=== PATIENT | female | born 1955 | race Caucasian/White ===

== ENCOUNTER → 2016-09-12 | Outpatient (CLI) | payer OTHER ==
[2016-09-12 12:41] LABS: MEAN CORPUSCULAR HEMOGLOBIN 29.7 pg (27.0-33.0); MEAN CORPUSCULAR VOLUME 87.3 fl (80.0-96.0); RED CELL DISTRIBUTION WIDTH 12.6 % (11.5-14.5); WHITE BLOOD COUNT 6.8 K/mm3 (4.0-10.0)
[2016-09-12 12:57] LABS: ALBUMIN 3.6 GM/DL (3.2-5.2); BILIRUBIN,DIRECT 0.1 MG/DL (0.0-0.2); BILIRUBIN,TOTAL 0.5 MG/DL (0.2-1.0); TOTAL PROTEIN 7.2 GM/DL (6.4-8.2)
== END ==
LOC: M WUC 09:59
PROVIDERS: ATTEND Internal Medicine
DX: Z51.81 Encounter for therapeutic drug level monitoring (principal); Z79.899 Other long term (current) drug therapy

== ENCOUNTER → 2016-09-25 | Outpatient (CLI) | payer OTHER ==
[2016-09-25 12:44] LABS: ALBUMIN 3.8 GM/DL (3.2-5.2); ALBUMIN/GLOBULIN RATIO 1.15 (1.00-1.93); BILIRUBIN,DIRECT 0.1 MG/DL (0.0-0.2); BILIRUBIN,TOTAL 0.5 MG/DL (0.2-1.0); TOTAL PROTEIN 7.1 GM/DL (6.4-8.2)
== END ==
LOC: M WUC 10:47
PROVIDERS: ATTEND Internal Medicine
DX: R79.89 Other specified abnormal findings of blood chemistry (principal)

== ENCOUNTER → 2017-04-16 | Outpatient (CLI) | payer OTHER ==
--- NOTE | 2017-04-16 10:21 | REPMRS ---
Patient History The patient states she has not had a clinical breast exam in over a year. Patient is postmenopausal and is nulliparous. No known family history of cancer. Took hormonal contraceptives for 10 years. Digital Woman Screen Mammo: April 16, 2017 - Exam #: [id number] Bilateral CC and MLO view(s) were taken. Technologist: Meli Harper, Technologist Prior study comparison: March 15, 2015, digital woman screen mammo performed at [facility]. March 10, 2013, bilateral bilat screen digital mammo, performed at [facility] ([facility]). June 24, 2011, bilateral bilat screen digital mammo, performed at [facility] ([facility]). FINDINGS: The breast tissue is heterogeneously dense. This may lower the sensitivity of mammography. There is a moderate amount of heterogeneously dense fibroglandular tissue which is fairly symmetric. There is no interval development of dominant mass, architectural distortion, or clustered microcalcification typical of malignancy. There has been no change in the appearance of the mammogram from the prior studies. ASSESSMENT: BI-RADS/ACR category 1 mammogram. Negative. Recommendation Routine screening mammogram of both breasts in 1 year (for women over age 40). This mammogram was interpreted with the aid of an FDA-approved computer-aided dectection system. Electronically Signed By: Goran Johnson MD 04/16/17 [id number]
== END ==
LOC: M WHC 08:26
PROVIDERS: ATTEND Internal Medicine
DX: Z12.31 Encounter for screening mammogram for malignant neoplasm of breast (principal)

== ENCOUNTER → 2017-05-04 | Outpatient (REF) | payer OTHER ==
[2017-05-04 13:09] LABS: ALBUMIN 3.8 GM/DL (3.2-5.2); ALBUMIN/GLOBULIN RATIO 1.15 (1.00-1.93); ALKALINE PHOSPHATASE 63 U/L (45-117); ALT/SGPT 41 U/L (12-78); ANION GAP 10 MEQ/L (8-16); AST/SGOT 22 U/L (15-37); BILIRUBIN,TOTAL 0.5 MG/DL (0.2-1.0); BLOOD UREA NITROGEN 13 MG/DL (7-18); CALCIUM LEVEL 8.6 MG/DL (8.8-10.2); CARBON DIOXIDE LEVEL 25 MEQ/L (21-32); CHLORIDE LEVEL 110 MEQ/L (98-107); CHOLESTEROL LEVEL 301 MG/DL (<200); CREATININE FOR GFR 0.86 MG/DL (0.55-1.02); GLOMERULAR FILTRATION RATE > 60.0 (>45); GLUCOSE, FASTING 82 MG/DL (80-110); POTASSIUM SERUM 4.2 MEQ/L (3.5-5.1); SODIUM LEVEL 145 MEQ/L (136-145); TOTAL PROTEIN 7.1 GM/DL (6.4-8.2); TRIGLYCERIDES LEVEL 277 MG/DL (<150)
== END ==
LOC: M SFHCPLAZ 08:15
PROVIDERS: ATTEND Internal Medicine
DX: E78.00 Pure hypercholesterolemia, unspecified (principal)

== ENCOUNTER → 2017-06-02 | Outpatient (REF) | payer OTHER | LOC: M SFHCWAGY 09:20 | PROVIDERS: ATTEND Nurse Practitioner Women's Health | DX: Z12.4 Encounter for screening for malignant neoplasm of cervix (principal) ==

== ENCOUNTER → 2017-12-21 | Outpatient (REF) | payer OTHER ==
[2017-12-21 13:21] LABS: ALBUMIN 3.9 GM/DL (3.2-5.2); ALBUMIN/GLOBULIN RATIO 1.22 (1.00-1.93); ALKALINE PHOSPHATASE 72 U/L (45-117); ALT/SGPT 42 U/L (12-78); ANION GAP 9 MEQ/L (8-16); AST/SGOT 24 U/L (7-37); BILIRUBIN,TOTAL 0.8 MG/DL (0.2-1.0); BLOOD UREA NITROGEN 18 MG/DL (7-18); CARBON DIOXIDE LEVEL 25 MEQ/L (21-32); CHLORIDE LEVEL 109 MEQ/L (98-107); CHOLESTEROL LEVEL 207 MG/DL (<200); CPK CREATINE PHOSPHOKINASE 179 U/L (26-192); CREATININE FOR GFR 0.97 MG/DL (0.55-1.30); GLOMERULAR FILTRATION RATE > 60.0 (>45); GLUCOSE, FASTING 95 MG/DL (70-100); HDL CHOLESTEROL 60 MG/DL (>40); LDL CHOLESTEROL 102.6 MG/DL (<100); NON-HDL-C 147 MG/DL; POTASSIUM SERUM 4.3 MEQ/L (3.5-5.1); SODIUM LEVEL 143 MEQ/L (136-145); TOTAL PROTEIN 7.1 GM/DL (6.4-8.2); TRIGLYCERIDES LEVEL 222 MG/DL (<150)
== END ==
LOC: M SFHCPLAZ 08:41
DX: E78.00 Pure hypercholesterolemia, unspecified (principal)
CPT/HCPCS: 82550

== ENCOUNTER 2018-03-03 09:24 | Day surgery (SDC) | payer OTHER ==
[2018-03-03] MEDS: NS 1,000 ML IV (10:00)
[2018-03-03] MEDS ORDERED: LIDOCAINE 2% INJ 100 MG/5 ML SDV (FOR ANES.) As Ordered (10:01)
[2018-03-03] MEDS ORDERED: PROPOFOL 200 MG/20 ML VIAL As Ordered ×2 (10:01)
[2018-03-03] MEDS ORDERED: fentaNYL 100 MCG/2 ML INJECTION (J3010) As Ordered (10:02)
== END 2018-03-03 11:27 | disposition home or self-care (01) ==
LOC: M OPP 09:24
DX: Z12.11 Encounter for screening for malignant neoplasm of colon (principal); K64.0 First degree hemorrhoids; K22.8 Other specified diseases of esophagus; K44.9 Diaphragmatic hernia without obstruction or gangrene; R12 Heartburn; K21.9 Gastro-esophageal reflux disease without esophagitis; E78.00 Pure hypercholesterolemia, unspecified; R06.83 Snoring; L40.9 Psoriasis, unspecified; Z79.899 Other long term (current) drug therapy
CPT/HCPCS: 45380

== ENCOUNTER → 2018-05-13 | Outpatient (REF) | payer OTHER | LOC: M SFHCPLAZ 13:20 | DX: R35.0 Frequency of micturition (principal) ==

== ENCOUNTER 2018-08-23 21:26 | Emergency (ER) | payer OTHER ==
[~2018-08-23] VITALS: Ht 175.3 cm; Wt 90.9 kg
[~2018-08-23 21:26] MED LIST changes: -IBUP200C25 PO; -MUCI600T31 PO; -ROSU5TAB4 PO; -TESS100C PO
[2018-08-23] MEDS ORDERED: MUCI600T31 PO (21:30)
[2018-08-23] MEDS ORDERED: IBUP200C25 PO (21:30)
[2018-08-23] MEDS ORDERED: ROSU5TAB4 PO (21:30)
[2018-08-23] MEDS ORDERED: ALBUTEROL SULFATE 2.5 MG/0.5 ML INH NEB SOLN INH ONE (23:00)
[2018-08-23 23:40] LABS: INFLUENZA A AMPLIFICATION NEGATIVE (NEGATIVE); INFLUENZA B AMPLIFICATION NEGATIVE (NEGATIVE)
[2018-08-24] MEDS ORDERED: TESS100C PO (00:02)
[2018-08-24 00:29] VITALS: BP 151/77
[2018-08-24] MEDS ORDERED: BENZONATATE 100 MG CAP PO ONE (00:30)
--- NOTE | 2018-08-24 02:20 | REP ---
Clinical: Acute cough . Comparison: 06/08/2008 . Technique: PA and lateral. Findings: The mediastinum and cardiac silhouette are normal. 15 mm rounded lesion in the left mid lung zone at the midclavicular line cannot be excluded and requires further investigation. No consolidation, effusion, or pneumothorax. The skeletal structures intact. Impression: 1. 15 mm rounded lesion in the left mid lung zone requires further investigation. Consider chest CT with contrast. Electronically Signed by Antonio Molina MD 08/24/2018 02:12 A
--- NOTE | 2018-08-24 13:35 | ED PDOC ---
Post-Departure Follow-Up dr sims faxed formal report of cxr for fu Katrina Brown MD Aug 24, 2018 13:35
== END 2018-08-24 00:56 | disposition home or self-care (01) ==
LOC: M ED 21:26
DX: J06.9 Acute upper respiratory infection, unspecified (principal); K21.9 Gastro-esophageal reflux disease without esophagitis; E78.5 Hyperlipidemia, unspecified

== ENCOUNTER → 2018-08-23 | Outpatient (REF) | payer OTHER ==
[~2018-08-23] MED LIST: IBUP200C25 PO; MUCI600T31 PO; NEXI40CA PO; PRAV40TA2 PO; ROSU5TAB4 PO; TESS100C PO
== END ==
LOC: M LAB REF 17:20
PROVIDERS: ATTEND Physician Assistant
DX: J02.9 Acute pharyngitis, unspecified (principal)

== ENCOUNTER → 2018-09-13 | Outpatient (CLI) | payer OTHER ==
[~2018-09-13] MED LIST changes: +IBUP200C25 PO; +ISOVUE-370 76% 100ML VIAL (Q9967) As Ordered ONE; +MUCI600T31 PO; +ROSU5TAB4 PO; +TESS100C PO
--- NOTE | 2018-09-13 10:10 | REP ---
Clinical: Pulmonary nodule. Technique: Axial contrast enhanced images from the thoracic inlet to the upper abdomen with coronal and sagittal re-formations. Correlation: Chest x-ray dated 08/23/2018. Findings: 1.6 cm enhancing round mass lesion in the perihilar left upper lobe (image 34) corresponds to the abnormal finding on recent chest x-ray and concerning for malignancy. Remainder of lung alba are relatively well aerated and clear. A small 3 mm noncalcified density in the periphery of the left lower lobe (image 65) is nonspecific in appearance and may represent small scar. No consolidation, effusion or pneumothorax. Tracheobronchial tree is patent. No significant adenopathy noted. The mediastinum demonstrates age appropriate thoracic aorta, pulmonary vasculature and heart/pericardium. No pericardial effusion. Surrounding musculoskeletal structures without focal osseous abnormality. Limited upper abdomen includes 4.7 cm and the 1.0 cm adjacent cysts in the left hepatic lobe. Normal bilateral adrenal glands identified. Impression: 1. 1.6 cm enhancing mass lesion in the left upper lobe. Follow-up and consultation is recommended along with PET-CT and/or tissue sampling. Electronically Signed by Antonio Molina MD 09/13/2018 10:02 A
== END ==
LOC: M RAD 09:01
PROVIDERS: ATTEND Nurse Practitioner Adult Health
DX: R91.8 Other nonspecific abnormal finding of lung field (principal)
CPT/HCPCS: 71260; Q9967

== ENCOUNTER → 2018-10-05 | Outpatient (CLI) | payer OTHER ==
[~2018-10-05] MED LIST changes: -ISOVUE-370 76% 100ML VIAL (Q9967) As Ordered ONE
--- NOTE | 2018-10-06 20:10 | REP ---
Whole body PET CT scan: The study is performed for evaluation of a single pulmonary nodule. On a recent chest CT dated 08/23/2018 a 1.6 cm single pulmonary nodule was identified in the left parahilar zone. Whole-body scanning is performed from skull base to the upper thighs. Neck and supraclavicular areas: There are no hypermetabolic foci. Chest: The left perihilar lung nodule is again identified on the CT accompanying the PET scan. The nodule is non hypermetabolic with a maximal standard uptake value of 1.9. There are no other foci in the chest. Abdomen, pelvis and upper thighs: There are no hypermetabolic foci. Specifically there are no hepatic or adrenal foci. Impression: The known left perihilar single pulmonary nodule is non hypermetabolic. There are no hypermetabolic foci otherwise. The study is performed with 8.94 mCi of F 18 FDG. Electronically Signed by Royce Rodriguez MD 10/06/2018 08:00 P
== END ==
LOC: M PLARAD 07:20
PROVIDERS: ATTEND Internal Medicine Pulmonary Disease
DX: R91.1 Solitary pulmonary nodule (principal)
CPT/HCPCS: 78815; A9552

== ENCOUNTER → 2018-12-22 | Outpatient (REF) | payer OTHER ==
[2018-12-22 13:23] LABS: ALT/SGPT 45 U/L (12-78); BILIRUBIN,TOTAL 0.9 MG/DL (0.2-1.0); BLOOD UREA NITROGEN 12 MG/DL (7-18); C REACTIVE PROTEIN QUANTITATIV 0.31 MG/DL (0.00-0.30); CALCIUM LEVEL 9.1 MG/DL (8.8-10.2); CARBON DIOXIDE LEVEL 28 MEQ/L (21-32); CHLORIDE LEVEL 106 MEQ/L (98-107); CHOLESTEROL LEVEL 229 MG/DL (<200); CHOLESTEROL RISK RATIO 3.634 (<5); CREATININE FOR GFR 0.83 MG/DL (0.55-1.30); GLOMERULAR FILTRATION RATE > 60.0 (>45); GLUCOSE, FASTING 106 MG/DL (70-100); HDL CHOLESTEROL 63 MG/DL (>40); LDL CHOLESTEROL 120 MG/DL (<100); MAGNESIUM LEVEL 2.1 MG/DL (1.8-2.4); NON-HDL-C 166 MG/DL; SODIUM LEVEL 140 MEQ/L (136-145); TOTAL PROTEIN 7.2 GM/DL (6.4-8.2); TRIGLYCERIDES LEVEL 230 MG/DL (<150)
== END ==
LOC: M SFHCPLAZ 08:54
PROVIDERS: ATTEND Internal Medicine
DX: E78.00 Pure hypercholesterolemia, unspecified (principal); K21.9 Gastro-esophageal reflux disease without esophagitis

== ENCOUNTER 2019-05-11 09:02 | Inpatient (IN) | payer OTHER ==
[~2019-05-11] VITALS: Ht 172.7 cm; Wt 86.4 kg
[~2019-05-11 09:02] MED LIST changes: -ROSU5TAB4 PO; +ROSU5TAB5 PO
[2019-05-11 11:00] VITALS: BP 118/80
[2019-05-11] MEDS ORDERED: ACETAMINOPHEN TAB 650MG DOSE (2X325MG) PO PRN (11:30)
[2019-05-11] MEDS ORDERED: BISACODYL 10 MG SUPP PR PRN (11:30)
[2019-05-11] MEDS ORDERED: traZODone 25MG PER 1/2 TABLET PO PRN (11:45)
[2019-05-11] MEDS ORDERED: QUEtiapine FUMARATE 12.5 MG HALF-TAB PO PRN (11:45)
[2019-05-11] MEDS ORDERED: PANT-23 PO (12:31)
[2019-05-11] MEDS ORDERED: MIRA3350 PO (12:31)
[2019-05-11] MEDS ORDERED: AMLO10TA5 PO (12:31)
[2019-05-11] MEDS ORDERED: MOM30SS PO (12:31)
[2019-05-11] MEDS ORDERED: HEPA500011 SC (12:31)
[2019-05-11] MEDS ORDERED: CRES10TA PO (12:31)
[2019-05-11] MEDS ORDERED: MELA3TAB41 PO (12:31)
[2019-05-11] MEDS ORDERED: ACET-907 PO (12:31)
[2019-05-11] MEDS ORDERED: OYST500T91 PO (12:31)
[2019-05-11] MEDS ORDERED: POTA20TA6 PO (12:31)
[2019-05-11] MEDS ORDERED: QUET1TAB7 PO (12:31)
[2019-05-11] MEDS ORDERED: SENN8.6T28 PO (12:31)
[2019-05-11] MEDS ORDERED: BISA10SU4 PR (12:31)
[2019-05-11] MEDS: MECLIZINE 12.5 MG TAB PO SCH ×3 (13:00→20:39)
[2019-05-11 14:00] VITALS: BP 108/64
[2019-05-11] MEDS: GABAPENTIN 100 MG CAP PO SCH ×2 (16:38→20:39)
[2019-05-11] MEDS: ACETAMINOPHEN 500 MG TAB PO SCH ×2 (16:40→20:40)
[2019-05-11 20:00] VITALS: BP 112/72
[2019-05-11] MEDS: ROSUVASTATIN 10 MG TAB (CRESTOR) PO SCH (20:39)
[2019-05-11] MEDS: traZODone 25MG PER 1/2 TABLET PO SCH (20:39)
[2019-05-11] MEDS: HEPARIN SOD (PORCINE) 5000 UNITS/ML VIAL SC SCH (20:40)
[2019-05-11] MEDS: DOCUSATE SODIUM 100 MG CAP PO SCH ×2 (20:40→21:00)
[2019-05-11] MEDS: SENNA 8.6 MG TAB (SENOKOT) PO SCH (20:46)
[2019-05-12 04:00] VITALS: BP 126/67
[2019-05-12 07:40] LABS: BASO # 0.1 10^3/uL (0.0-0.2); BASO % 0.8 % (0.0-1.0); EOS # 0.3 10^3/uL (0.0-0.5); EOS % 4.7 % (0.0-3.0); LYMPH # 2.3 10^3/uL (1.5-5.0); LYMPH % 34.1 % (24.0-44.0); MEAN CORPUSCULAR HEMOGLOBIN 30.2 pg (27.0-33.0); MEAN CORPUSCULAR HGB CONC 34.3 g/dl (32.0-36.5); MEAN CORPUSCULAR VOLUME 88.2 fl (80.0-96.0); MONO # 0.7 10^3/uL (0.0-0.8); NEUTROPHILS # 3.3 10^3/uL (1.5-8.5); NEUTROPHILS % 48.9 % (36.0-66.0); PLATELET COUNT, AUTOMATED 410 10^3/uL (150-450); RED BLOOD COUNT 3.97 10^6/uL (4.00-5.40); WHITE BLOOD COUNT 6.6 10^3/uL (4.0-10.0)
[2019-05-12 08:05] LABS: ALBUMIN 3.7 GM/DL (3.2-5.2); BILIRUBIN,TOTAL 0.7 MG/DL (0.2-1.0); CALCIUM LEVEL 9.7 MG/DL (8.8-10.2); CREATININE FOR GFR 1.02 MG/DL (0.55-1.30); GLOMERULAR FILTRATION RATE 58.3 (>45); POTASSIUM SERUM 3.6 MEQ/L (3.5-5.1); TOTAL PROTEIN 7.6 GM/DL (6.4-8.2)
[2019-05-12] MEDS ORDERED: POTASSIUM CHLORIDE 10 MEQ SR TABLET PO SCH (09:00)
[2019-05-12] MEDS ORDERED: amLODIPine 10 MG TAB PO SCH (09:00)
[2019-05-12] MEDS: HEPARIN SOD (PORCINE) 5000 UNITS/ML VIAL SC SCH ×2 (09:41→20:11)
[2019-05-12] MEDS: ACETAMINOPHEN 500 MG TAB PO SCH ×3 (09:41→20:12)
[2019-05-12] MEDS: DOCUSATE SODIUM 100 MG CAP PO SCH ×2 (09:41→20:54)
[2019-05-12] MEDS: PANTOPRAZOLE 40MG TAB (PROTONIX) PO SCH (09:41)
[2019-05-12] MEDS: OYSTER SHELL CALCIUM 500 MG TAB PO SCH (09:42)
[2019-05-12] MEDS: MECLIZINE 12.5 MG TAB PO SCH (09:42)
[2019-05-12] MEDS: GABAPENTIN 100 MG CAP PO SCH ×3 (09:42→20:12)
--- NOTE | 2019-05-12 09:52 | HPEPDOC ---
Radiology Orderly Note DATE OF ADMISSION: 05/11/19 SOURCE OF ADMISSION INFORMATION: [facility] and patient CHIEF COMPLAINT: s/p craniotomy HISTORY OF PRESENT ILLNESS: 64F pmh left sided trigeminal neuralgia, cervical and lumbar spondylosis, GERD who failed conservative treatment for her trigeminal neuralgia and underwent an electic left sided suboccipital craniectomy with decompression of this nerve on 04/22/19 with EVD placement at [facility]. She developed left eye blurred vision post-op and increased drowsiness with slurred speech and confusion for which MRI head on 04/24 showed, Acute hemorrhage with surrounding edema seen within the right cerebellar hemisphere. A small area of restricted diffusion in the area of hemorrhage can be due to the hemorrhage although ischemia/infarction cannot be entirely excludedCerebellar tonsillar herniation and near complete effacement o f the fourth ventricle is identified. Partial effacement of the left ambient cistern is consistent with impeding tonsillar herniation. She was treated with decadron and hypertonic saline, however she eventually underwent a left sided decompressive craniotomy on 04/25/19 without complication and her her neurological exam improved. She initially had dysphagia and had NGT feeds, but later underwent a MBS and upgraded to a modified diet. She was evaluated by therapy, found to have mobility and ADL impairments below her prior level of function and deemed medically appropriate for discharge to ARU on 05/11/19. REVIEW OF SYSTEMS: The following is a completed review of systems and has been reviewed. Review of systems otherwise unremarkable. PAIN: Patient self reports headache EYES: +double vision EARS, NOSE, & THROAT: No throat pain, +mild dysphagia CARDIOVASCULAR: Denies chest pain or palpitations PULMONARY: Denies shortness of breath GASTROINTESTINAL:Denies constipation/diarrhea. GENITOURINARY: denies dysuria MUSCULOSKELETAL: +arthritis NEUROLOGICAL:+ trigeminal neuralgia, +dizziness HEMATOLOGICAL: denies easy bruising SKIN: craniotomy incision PSYCHIATRIC: Unremarkable All other review of systems found to be negative. PAST MEDICAL HISTORY: as per HPI PAST SURGICAL HISTORY: Colonoscopy and as per HPI ALLERGIES: Please see below. MEDICATIONS: Please see below. FAMILY HISTORY: stroke, arthritis, HLD SOCIAL HISTORY: no smoking, occasional ETOH, no illicit drugs DIET: mechanical soft and thins PHYSICAL EXAMINATION: VITAL SIGNS: Please see below. GENERAL: Pleasant and cooperative. No acute distress. HEENT: PERRL. Extraocular movements grossly intact. Clear conjunctiva. CARDIOVASCULAR: Regular rate and rhythm. No murmurs, rubs, or gallops LUNGS: Clear to auscultation bilaterally. No wheezes. No rhonchi ABDOMEN: Soft, nontender, nondistended. Positive bowel sounds. Normal active bowel sounds NEUROLOGICAL: Alert and oriented times three. Cranial nerves II through XII grossly intact except decreased sensation left V2-3. Sensation grossly intact (-) babinksi/clonus +dysmetria with finger to nose on the left (mild) EXTREMITIES: 5\5 strength bilateral upper extremities.5\5 strength right lower extremity. 5/5 strength in left lower extremity. SKIN: left fronto-parietal and occipital craniotomy incision,s c/d/i LABORATORY DATA: Please see below. IMAGING:Imaging documentation personally reviewed by record FUNCTIONAL STATUS: Premorbid: Independent with all activities of daily life as well as mobility On Admission: Minimum assistance for bathing, upper body dressing, bed chair and wheelchair transfers, toilet transfers, ambulation. GOALS: Modified Independent with all activities of daily life as well as mobility with RW, community distances ASSESSMENT:64-year-old F with past medical history of trigeminal neuralgia who presents status post decompressive craniotomy with cerebellar edema requiring repeat craniotomy. PLAN: 1.Rehab: PT- strengthen, stretch, maintain ROM bilat LE, advance gait training, dynamic balance, fall recovery OT- strengthen, stretch, maintain ROM bilat UE, ADLs COPY OPERATOR: evaluate for cognitive impairment and for dysphagia 2. Neuro: pmh trigeminal neuralgia s/p decompression on 04/22/19 complicated by cerebellar edema with tonsillar herniation s/p decompression craniotomy 04/25/19 -monitor for neurological decline, will need neurosurgery follow-up, apptmt 1 for suture removal -meclizine for dizziness -will need outpatient vision therapy 3. Cardio: HTN c/u BP meds, medicine consulted to assist in management 4. Resp: encourage incentive spirometyr, monitor for infection 5. : monitor PVRs 6. Pain: Tylenol and gabapentin 7. DVT ppx: heparin q12h and teds 8. GI ppx: Protonix 9. Psych: patient with episodes of agitation at [facility], will order trazodone qHS standing at night and prn for agitation, Seroquel qHS prn agitation 10. Dispo: TBD POST ADMISSION PHYSICIAN EVALUATION: Medical and functional status: Description of medical status, medical assessment: As above. Rehabilitation diagnosis and current and prior cold morbid medical conditions as above. Risk of complications and plans to mitigate them as above. Description of functional status current status is as above. Prior status as above. Status compared to preadmission: There are no clinically significant differences between the patient's current status and the information described on the preadmission screening document. Treatment plan anticipated: Treatment plan is as described above. Required disciplines including physical therapy, occupational therapy, others as noted above Intensity of services: 3 hours a day, 6 days a week. Special considerations: There are no specific special or safety considerations that would likely preclude immediate implementation of an intensive rehabilitation program or subsequently influence the plan of care ATTESTATION: Considering all the information above, it is my best judgment that this patient requires intensive rehabilitation therapy as described above and an inpatient hospital environment due to the complexity of nursing, medical, and rehabilitation needs required by the patient. Furthermore, this patient can reasonably be expected to participate in an benefit from an inpatient rehabilitation stay with an interdisciplinary team approach to the delivery of rehabilitation care under the direction and supervision of rehabilitation physician PROGNOSIS: Excellent. ESTIMATED LENGTH OF STAY:18-21 days. PROJECTED DISCHARGE DESTINATION: Home with family support and any durable medical equipment required to increase functional safety and mobility. TIME SPENT COUNSELING AND COORDINATING INITIAL CARE: Greater than 70 minutes. Vital Signs Vital Sign - Last 24 Hours 05/11/19 05/11/19 05/11/19 05/12/19 11:00 14:00 20:00 04:00 Temp 96.7 97.8 97.4 97.5 Pulse 90 96 99 99 Resp 18 17 16 18 B/P (MAP) 118/80 (93) 108/64 (79) 112/72 (85) 126/67 (86) Pulse Ox 94 95 94 94 Laboratory Data CBC/BMP Laboratory Tests 05/12/19 07:21 Red Blood Count 3.97 L, Mean Corpuscular Volume 88.2, Mean Corpuscular Hemoglobin 30.2, Mean Corpuscular Hemoglobin Concent 34.3, Red Cell Distribution Width 13.6, Neutrophils (%) (Auto) 48.9, Lymphocytes (%) (Auto) 34.1, Monocytes (%) (Auto) 11.0 H, Eosinophils (%) (Auto) 4.7 H, Basophils (%) (Auto) 0.8, Neutrophils # (Auto) 3.3, Lymphocytes # (Auto) 2.3, Monocytes # (Auto) 0.7, Eosi nophils # (Auto) 0.3, Basophils # (Auto) 0.1, Calcium Level 9.7, Aspartate Amino Transf (AST/SGOT) 15, Alanine Aminotransferase (ALT/SGPT) 42, Alkaline Phosphatase 84, Total Bilirubin 0.7, Total Protein 7.6, Albumin 3.7 Labs 24H Laboratory Tests 2 05/12/19 07:21: Immature Granulocyte % (Auto) 0.5, White Blood Count 6.6, Red Blood Count 3.97L, Hemoglobin 12.0, Hematocrit 35.0L, Mean Corpuscular Volume 88.2, Mean Corpuscular Hemoglobin 30.2, Mean Corpuscular Hemoglobin Concent 34.3, Red Cell Distribution Width 13.6, Platelet Count 410, Neutrophils (%) (Auto) 48.9, Lymphocytes (%) (Auto) 34.1, Monocytes (%) (Auto) 11.0H, Eosinophils (%) (Auto) 4.7H, Basophils (%) (Auto) 0.8, Neutrophils # (Auto) 3.3, Lymphocytes # (Auto) 2.3, Monocytes # (Auto) 0.7, Eosinophils # (Auto) 0.3, Basophils # (Auto) 0.1, Nucleated Red Blood Cells % (auto) 0.0, Anion Gap 6L, Glomerular Filtration Rate 58.3, Blood Urea Nitrogen 13, Creatinine 1.02, Sodium Level 134L, Potassium Level 3.6, Chloride Level 98, Carbon Dioxide Level 30, Calcium Level 9.7, Aspartate Amino Transf (AST/SGOT) 15, Alanine Aminotransferase (ALT/SGPT) 42, Alkaline Phosphatase 84, Total Bilirubin 0.7, Total Protein 7.6, Albumin 3.7, Albumin/Globulin Ratio 0.95L Home Medications Scheduled Amlodipine Besylate (Amlodipine Besylate) 10 Mg Tablet, 10 MG PO DAILY, (Reported) Calcium Carbonate/Vitamin D3 (Calcium 500-Vit D3 200 Tablet) 1 Each Tablet, 2 TAB PO DAILY, (Reported) Heparin Sodium,Porcine (Heparin Sodium) 5,000 Unit/1 Ml Vial, 5,000 UNIT SC BID, (Reported) STARTED AT [facility] Melatonin (Melatonin) 3 Mg Tablet, 3 MG PO QHS, (Reported) Pantoprazole Sodium (Pantoprazole Sodium) 40 Mg Tablet.dr, 40 MG PO DAILY, (Reported) WAS ON NEXIUM AT HOME Potassium Chloride (Potassium Chloride) 20 Meq Tab.er.prt, 20 MEQ PO BID, (Reported) PLEASE USE POWDER PACKET Quetiapine Fumarate (Quetiapine Fumarate) 25 Mg Tablet, 25 MG PO QHS, (Reported) STARTED AT [facility] Rosuvastatin Calcium (Crestor) 10 Mg Tablet, 10 MG PO QHS, (Reported) Sennosides (Senna) 8.6 Mg Tablet, 2 TAB PO QHS, (Reported) Scheduled PRN Acetaminophen (Tylenol) 325 Mg Tablet, 975 MG PO Q8H PRN for PAIN, (Reported) Bisacodyl (Bisacodyl) 10 Mg Supp.rect, 10 MG AR DAILY PRN for CONSTIPATION, (Reported) Milk Of Magnesia (Milk of Magnesia) 2,400 Mg/10 Ml Oral.susp, 30 ML PO DAILY PRN for CONSTIPATION, (Reported) Polyethylene Glycol 3350 (Miralax) 119 Gm Powder, 17 GM PO DAILY PRN for CONSTIPATION, (Reported) Allergies Coded Allergies: No Known Allergies (Unverified , 02/23/18) A-FIB/CHADSVASC A-FIB History Current/History of A-Fib/PAF?: No HECTOR YAO MD May 12, 2019 09:52
[2019-05-12] MEDS ORDERED: ONDANSETRON 4 MG ORAL DISINTEGRATING TAB (Q0162 PER 1MG) PO PRN (11:00)
[2019-05-12 14:00] VITALS: BP 135/80
[2019-05-12] MEDS ORDERED: FIORICET TAB PO PRN (16:00)
[2019-05-12] MEDS: MECLIZINE 25 MG TABLET PO SCH ×2 (17:03→20:11)
[2019-05-12 20:00] VITALS: BP 135/79
[2019-05-12] MEDS: ROSUVASTATIN 10 MG TAB (CRESTOR) PO SCH (20:11)
[2019-05-12] MEDS: SENNA 8.6 MG TAB (SENOKOT) PO SCH (20:12)
[2019-05-12] MEDS: traZODone 25MG PER 1/2 TABLET PO SCH (20:12)
[2019-05-13 06:00] VITALS: BP 123/76
[2019-05-13 06:22] LABS: BASO # 0.1 10^3/uL (0.0-0.2); BASO % 0.8 % (0.0-1.0); EOS # 0.4 10^3/uL (0.0-0.5); EOS % 5.6 % (0.0-3.0); HEMATOCRIT 32.5 % (36.0-47.0); LYMPH # 2.4 10^3/uL (1.5-5.0); LYMPH % 37.7 % (24.0-44.0); MEAN CORPUSCULAR HEMOGLOBIN 29.3 pg (27.0-33.0); MEAN CORPUSCULAR HGB CONC 33.8 g/dl (32.0-36.5); MEAN CORPUSCULAR VOLUME 86.4 fl (80.0-96.0); MONO # 0.7 10^3/uL (0.0-0.8); MONO % 11.1 % (0.0-5.0); NEUTROPHILS # 2.8 10^3/uL (1.5-8.5); NEUTROPHILS % 44.6 % (36.0-66.0); PLATELET COUNT, AUTOMATED 355 10^3/uL (150-450); RED BLOOD COUNT 3.76 10^6/uL (4.00-5.40); WHITE BLOOD COUNT 6.2 10^3/uL (4.0-10.0)
[2019-05-13 06:51] LABS: CALCIUM LEVEL 9.2 MG/DL (8.8-10.2); GLOMERULAR FILTRATION RATE 59.6 (>45); POTASSIUM SERUM 3.6 MEQ/L (3.5-5.1)
[2019-05-13] MEDS: ACETAMINOPHEN 500 MG TAB PO SCH ×3 (08:01→21:52)
[2019-05-13] MEDS: PANTOPRAZOLE 40MG TAB (PROTONIX) PO SCH (08:01)
[2019-05-13] MEDS: MECLIZINE 25 MG TABLET PO SCH ×3 (08:01→21:51)
[2019-05-13] MEDS: OYSTER SHELL CALCIUM 500 MG TAB PO SCH (08:01)
[2019-05-13] MEDS: GABAPENTIN 100 MG CAP PO SCH ×3 (08:01→21:51)
[2019-05-13] MEDS: amLODIPine 5 MG TAB PO SCH (08:02)
[2019-05-13] MEDS: HEPARIN SOD (PORCINE) 5000 UNITS/ML VIAL SC SCH ×2 (08:02→21:52)
[2019-05-13] MEDS: POTASSIUM CHLORIDE 10% LIQ 20 MEQ/15 ML UDC PO SCH (08:02)
[2019-05-13] MEDS: DOCUSATE SODIUM 100 MG CAP PO SCH ×2 (09:00→21:51)
--- NOTE | 2019-05-13 11:54 | IPNPDOC ---
PM&R Progress Note DATE OF SERVICE: May 12, 2019 Attending Urologist Progress Note Subjective: Patient seen after therapy stating she felt dizzy and had a headache. She reports the Meclizine seems to help a little for her dizziness. REVIEW OF SYSTEMS: The following is a completed review of systems and has been reviewed. Review of systems otherwise unremarkable. PAIN: Patient self reports headache EYES: +double vision EARS, NOSE, & THROAT: No throat pain, +mild dysphagia CARDIOVASCULAR: Denies chest pain or palpitations PULMONARY: Denies shortness of breath GASTROINTESTINAL:Denies constipation/diarrhea. GENITOURINARY: denies dysuria MUSCULOSKELETAL: +arthritis NEUROLOGICAL:+ trigeminal neuralgia, +dizziness HEMATOLOGICAL: denies easy bruising SKIN: craniotomy incision PSYCHIATRIC: Unremarkable All other review of systems found to be negative. PHYSICAL EXAMINATION: VITAL SIGNS: Please see below. GENERAL: Pleasant and cooperative. No acute distress. HEENT: PERRL. Extraocular movements grossly intact. Clear conjunctiva. CARDIOVASCULAR: Regular rate and rhythm. No murmurs, rubs, or gallops LUNGS: Clear to auscultation bilaterally. No wheezes. No rhonchi ABDOMEN: Soft, nontender, nondistended. Positive bowel sounds. Normal active bowel sounds NEUROLOGICAL: Alert and oriented times three. Cranial nerves II through XII grossly intact except decreased sensation left V2-3. Sensation grossly intact (-) babinksi/clonus +dysmetria with finger to nose on the left (mild) EXTREMITIES: 5\5 strength bilateral upper extremities.5\5 strength right lower extremity. 5/5 strength in left lower extremity. SKIN: left fronto-parietal and occipital craniotomy incision,s c/d/i ASSESSMENT:64-year-old F with past medical history of trigeminal neuralgia who presents status post decompressive craniotomy with cerebellar edema requiring repeat craniotomy. PLAN: 1.Rehab: PT- strengthen, stretch, maintain ROM bilat LE, advance gait training, dynamic balance, fall recovery OT- strengthen, stretch, maintain ROM bilat UE, ADLs METALLOGRAPHER: evaluate for cognitive impairment and for dysphagia 2. Neuro: pmh trigeminal neuralgia s/p decompression on 04/22/19 complicated by cerebellar edema with tonsillar herniation s/p decompression craniotomy 04/25/19 -monitor for neurological decline, will need neurosurgery follow-up, apptmt 05-19-19 for suture removal -will increase meclizine to 25mg TID for dizziness -will need outpatient vision therapy 3. Cardio: HTN c/u BP meds, medicine consulted to assist in management 4. Resp: encourage incentive spirometyr, monitor for infection 5. : monitor PVRs 6. Pain: Tylenol and gabapentin, will add fiorecet prn 7. DVT ppx: heparin q12h and teds 8. GI ppx: Protonix 9. Psych: patient with episodes of agitation at [facility], will order trazodone qHS standing at night and prn for agitation, Seroquel qHS prn agitation 10. Dispo: TBD Allergies Coded Allergies: No Known Allergies (Unverified , 02/23/18) Vital Signs Vital Signs Date Time Temp Pulse Resp B/P (MAP) Pulse Ox O2 Delivery O2 Flow Rate FiO2 05/13/19 08:02 141/90 05/13/19 06:00 98.6 98 16 93 Laboratory Data CBC/BMP Laboratory Tests 05/13/19 06:11 Red Blood Count 3.76 L, Mean Corpuscular Volume 86.4, Mean Corpuscular Hemoglobin 29.3, Mean Corpuscular Hemoglobin Concent 33.8, Red Cell Distribution Width 13.7, Neutrophils (%) (Auto) 44.6, Lymphocytes (%) (Auto) 37.7, Monocytes (%) (Auto) 11.1 H, Eosinophils (%) (Auto) 5.6 H, Basophils (%) (Auto) 0.8, Neutrophils # (Auto) 2.8, Lymphocytes # (Auto) 2.4, Monocytes # (Auto) 0.7, Eosinophils # (Auto) 0.4, Basophils # (Auto) 0.1, Calcium Level 9.2 Labs 24H Laboratory Tests 2 05/13/19 06:11: Immature Granulocyte % (Auto) 0.2, White Blood Count 6.2, Red Blood Count 3.76L, Hemoglobin 11.0L, Hematocrit 32.5L, Mean Corpuscular Volume 86.4, Mean Corpuscular Hemoglobin 29.3, Mean Corpuscular Hemoglobin Concent 33.8, Red Cell Distribution Width 13.7, Platelet Count 355, Neutrophils (%) (Auto) 44.6, Lymphocytes (%) (Auto) 37.7, Monocytes (%) (Auto) 11.1H, Eosinophils (%) (Auto) 5.6H, Basophils (%) (Auto) 0.8, Neutrophils # (Auto) 2.8, Lymphocytes # (Auto) 2.4, Monocytes # (Auto) 0.7, Eosinophils # (Auto) 0.4, Basophils # (Auto) 0.1, Nucleated Red Blood Cells % (auto) 0.0, Anion Gap 6L, Glomerular Filtration Rate 59.6, Blood Urea Nitrogen 14, Creatinine 1.00, Sodium Level 136, Potassium Level 3.6, Chloride Level 100, Carbon Dioxide Level 30, Calcium Level 9.2 Current Medications Current Medications Current Medications Medications (Trade) Dose Ordered Sig/Rufino Route PRN Reason Start Time Stop Time Status Last Admin Dose Admin Acetaminophen (Tylenol Tab) 650 mg Q4HP PRN PO MILD PAIN (PS 1-4) 05/11/19 11:30 05/11/19 12:48 DC Acetaminophen (Tylenol Tab) 1,000 mg TID PO 05/11/19 16:00 05/13/19 08:01 Acetaminophen/ Butalbital/ Caffeine (Fioricet) 1 ea Q6HP PRN PO HEADACHE 05/12/19 16:00 Amlodipine Besylate (Norvasc) 5 mg DAILY PO 05/13/19 09:00 05/13/19 08:02 Amlodipine Besylate (Norvasc) 10 mg DAILY PO 05/12/19 09:00 05/12/19 10:50 DC 05/12/19 09:42 Bisacodyl (Dulcolax Suppository) 10 mg DAILYPRN PRN ID CONSTIPATION 05/11/19 11:30 Calcium Carbonate (Oscal) 500 mg DAILY PO 05/12/19 09:00 05/13/19 08:01 Dexamethasone (Decadron) 2 mg TID PO 05/13/19 11:00 05/13/19 11:05 Docusate Sodium (Colace) 100 mg BID PO 05/11/19 21:00 05/12/19 09:41 Gabapentin (Neurontin) 100 mg TID PO 05/11/19 16:00 05/13/19 08:01 Heparin Sodium (Porcine) (Heparin) 5,000 units Q12H SC 05/11/19 21:00 05/13/19 08:02 Home Med (Med Rec Complete!) ASDIRECTED XX 05/11/19 12:45 05/11/19 12:41 DC Meclizine HCl (Antivert) 12.5 mg TID PO 05/11/19 13:00 05/12/19 10:50 DC 05/12/19 09:42 Meclizine HCl (Antivert) 25 mg TID PO 05/12/19 16:00 05/13/19 08:01 Ondansetron HCl (Zofran Odt) 4 mg Q6HP PRN PO NAUSEA OR VOMITING 05/12/19 11:00 Pantoprazole Sodium (Protonix) 40 mg DAILY PO 05/12/19 09:00 05/13/19 08:01 Potassium Chloride (Micro-K Extencaps) 20 meq DAILY PO 05/12/19 09:00 05/12/19 09:59 DC 05/12/19 09:41 Potassium Chloride (Potassium Chloride Liquid) 20 meq DAILY PO 05/13/19 09:00 05/13/19 08:02 Quetiapine Fumarate (SEROquel) 12.5 mg QHS PRN PO AGITATION 05/11/19 11:45 Rosuvastatin Calcium (Crestor) 10 mg QHS PO 05/11/19 21:00 05/12/19 20:11 Senna (Senokot) 1 tab QHS PO 05/11/19 21:00 05/12/19 20:12 Trazodone HCl (Desyrel) 25 mg Q6HP PRN PO AGITATION 05/11/19 11:45 Trazodone HCl (Desyrel) 25 mg QHS PO 05/11/19 21:00 05/12/19 20:12 HECTOR YAO MD May 13, 2019 11:54
--- NOTE | 2019-05-13 12:00 | IPNPDOC ---
PM&R Progress Note DATE OF SERVICE: May 13, 2019 Welder Experimental Progress Note Subjective: Patient seen this morning after OT and ED TEACHER having reported to PT she felt dizzy. Upon my arrival she said the dizziness had subsided, denied nausea, was alert and oriented, able to follow commands, and reported feeling tired. REVIEW OF SYSTEMS: The following is a completed review of systems and has been reviewed. Review of systems otherwise unremarkable. PAIN: Patient self reports headache EYES: +double vision EARS, NOSE, & THROAT: No throat pain, +mild dysphagia CARDIOVASCULAR: Denies chest pain or palpitations PULMONARY: Denies shortness of breath GASTROINTESTINAL:Denies constipation/diarrhea. GENITOURINARY: denies dysuria MUSCULOSKELETAL: +arthritis NEUROLOGICAL:+ trigeminal neuralgia, +dizziness (intermittent) HEMATOLOGICAL: denies easy bruising SKIN: craniotomy incision PSYCHIATRIC: Unremarkable All other review of systems found to be negative. PHYSICAL EXAMINATION: VITAL SIGNS: Please see below. GENERAL: Pleasant and cooperative. No acute distress. HEENT: PERRL. Extraocular movements grossly intact. Clear conjunctiva. CARDIOVASCULAR: Regular rate and rhythm. No murmurs, rubs, or gallops LUNGS: Clear to auscultation bilaterally. No wheezes. No rhonchi ABDOMEN: Soft, nontender, nondistended. Positive bowel sounds. Normal active bowel sounds NEUROLOGICAL: Alert and oriented times three. Cranial nerves II through XII grossly intact except decreased sensation left V2-3. Sensation grossly intact (-) babinksi/clonus +dysmetria with finger to nose on the left (mild) EXTREMITIES: 5\5 strength bilateral upper extremities.5\5 strength right lower extremity. 5/5 strength in left lower extremity. SKIN: left fronto-parietal and occipital craniotomy incision,s c/d/i ASSESSMENT:64-year-old F with past medical history of trigeminal neuralgia who presents status post decompressive craniotomy with cerebellar edema requiring repeat craniotomy. PLAN: 1.Rehab: PT- strengthen, stretch, maintain ROM bilat LE, advance gait training, dynamic balance, fall recovery OT- strengthen, stretch, maintain ROM bilat UE, ADLs ED TEACHER: evaluate for cognitive impairment and for dysphagia 2. Neuro: pmh trigeminal neuralgia s/p decompression on 04/22/19 complicated by cerebellar edema with tonsillar herniation s/p decompression craniotomy 04/25/19 -monitor for neurological decline, will need neurosurgery follow-up, apptmt 05-19-19 for suture removal -c/u meclizine to 25mg TID for dizziness -patient with fatigue after therapy, neurological exam stable, this is an expected post-op symptoms, however will start decadron 2mg TID to help with susp ected persistent edema, will consider repeat imaging if worsening clinical picture -therapy will be spaced to allow for rest -will need outpatient vision therapy 3. Cardio: HTN c/u BP meds, medicine consulted to assist in management 4. Resp: encourage incentive spirometry, monitor for infection 5. : monitor PVRs 6. Pain: Tylenol and gabapentin, will add fiorecet prn 7. DVT ppx: heparin q12h and teds 8. GI ppx: Protonix 9. Psych: patient with episodes of agitation at [facility], will order trazodone qHS standing at night and prn for agitation, will d/c Seroquel qHS prn agitation as not needing this 10. Dispo: TBD Allergies Coded Allergies: No Known Allergies (Unverified , 02/23/18) Vital Signs Vital Signs Date Time Temp Pulse Resp B/P (MAP) Pulse Ox O2 Delivery O2 Flow Rate FiO2 05/13/19 08:02 141/90 05/13/19 06:00 98.6 98 16 93 Laboratory Data CBC/BMP Laboratory Tests 05/13/19 06:11 Red Blood Count 3.76 L, Mean Corpuscular Volume 86.4, Mean Corpuscular Hemoglobin 29.3, Mean Corpuscular Hemoglobin Concent 33.8, Red Cell Distribution Width 13.7, Neutrophils (%) (Auto) 44.6, Lymphocytes (%) (Auto) 37.7, Monocytes (%) (Auto) 11.1 H, Eosinophils (%) (Auto) 5.6 H, Basophils (%) (Auto) 0.8, Neutrophils # (Auto) 2.8, Lymphocytes # (Auto) 2.4, Monocytes # (Auto) 0.7, Eosinophils # (Auto) 0.4, Basophils # (Auto) 0.1, Calcium Level 9.2 Labs 24H Laboratory Tests 2 05/13/19 06:11: Immature Granulocyte % (Auto) 0.2, White Blood Count 6.2, Red Blood Count 3.76L, Hemoglobin 11.0L, Hematocrit 32.5L, Mean Corpuscular Volume 86.4, Mean Corpuscular Hemoglobin 29.3, Mean Corpuscular Hemoglobin Concent 33.8, Red Cell Distribution Width 13.7, Platelet Count 355, Neutrophils (%) (Auto) 44.6, Lymphocytes (%) (Auto) 37.7, Monocytes (%) (Auto) 11.1H, Eosinophils (%) (Auto) 5.6H, Basophils (%) (Auto) 0.8, Neutrophils # (Auto) 2.8, Lymphocytes # (Auto) 2.4, Monocytes # (Auto) 0.7, Eosinophils # (Auto) 0.4, Basophils # (Auto) 0.1, Nucleated Red Blood Cells % (auto) 0.0, Anion Gap 6L, Glomerular Filtration Rate 59.6, Blood Urea Nitrogen 14, Creatinine 1.00, Sodium Level 136, Potassium Level 3.6, Chloride Level 100, Carbon Dioxide Level 30, Calcium Level 9.2 Current Medications Current Medications Current Medications Medications (Trade) Dose Ordered Sig/Rufino Route PRN Reason Start Time Stop Time Status Last Admin Dose Admin Acetaminophen (Tylenol Tab) 650 mg Q4HP PRN PO MILD PAIN (PS 1-4) 05/11/19 11:30 05/11/19 12:48 DC Acetaminophen (Tylenol Tab) 1,000 mg TID PO 05/11/19 16:00 05/13/19 08:01 Acetaminophen/ Butalbital/ Caffeine (Fioricet) 1 ea Q6HP PRN PO HEADACHE 05/12/19 16:00 Amlodipine Besylate (Norvasc) 5 mg DAILY PO 05/13/19 09:00 05/13/19 08:02 Amlodipine Besylate (Norvasc) 10 mg DAILY PO 05/12/19 09:00 05/12/19 10:50 DC 05/12/19 09:42 Bisacodyl (Dulcolax Suppository) 10 mg DAILYPRN PRN [place] CONSTIPATION 05/11/19 11:30 Calcium Carbonate (Oscal) 500 mg DAILY PO 05/12/19 09:00 05/13/19 08:01 Dexamethasone (Decadron) 2 mg TID PO 05/13/19 11:00 05/13/19 11:05 Docusate Sodium (Colace) 100 mg BID PO 05/11/19 21:00 05/12/19 09:41 Gabapentin (Neurontin) 100 mg TID PO 05/11/19 16:00 05/13/19 08:01 Heparin Sodium (Porcine) (Heparin) 5,000 units Q12H SC 05/11/19 21:00 05/13/19 08:02 Home Med (Med Rec Complete!) ASDIRECTED XX 05/11/19 12:45 05/11/19 12:41 DC Meclizine HCl (Antivert) 12.5 mg TID PO 05/11/19 13:00 05/12/19 10:50 DC 05/12/19 09:42 Meclizine HCl (Antivert) 25 mg TID PO 05/12/19 16:00 05/13/19 08:01 Ondansetron HCl (Zofran Odt) 4 mg Q6HP PRN PO NAUSEA OR VOMITING 05/12/19 11:00 Pantoprazole Sodium (Protonix) 40 mg DAILY PO 05/12/19 09:00 05/13/19 08:01 Potassium Chloride (Micro-K Extencaps) 20 meq DAILY PO 05/12/19 09:00 05/12/19 09:59 DC 05/12/19 09:41 Potassium Chloride (Potassium Chloride Liquid) 20 meq DAILY PO 05/13/19 09:00 05/13/19 08:02 Quetiapine Fumarate (SEROquel) 12.5 mg QHS PRN PO AGITATION 05/11/19 11:45 Rosuvastatin Calcium (Crestor) 10 mg QHS PO 05/11/19 21:00 05/12/19 20:11 Senna (Senokot) 1 tab QHS PO 05/11/19 21:00 05/12/19 20:12 Trazodone HCl (Desyrel) 25 mg Q6HP PRN PO AGITATION 05/11/19 11:45 Trazodone HCl (Desyrel) 25 mg QHS PO 05/11/19 21:00 05/12/19 20:12 HECTOR YAO MD May 13, 2019 12:00
[2019-05-13] MEDS: BISACODYL 5 MG TAB PO SCH (13:06)
[2019-05-13 14:00] VITALS: BP 104/63
[2019-05-13 20:00] VITALS: BP 131/89
[2019-05-13] MEDS: SENNA 8.6 MG TAB (SENOKOT) PO SCH (21:51)
[2019-05-13] MEDS: ROSUVASTATIN 10 MG TAB (CRESTOR) PO SCH (21:52)
[2019-05-13] MEDS: traZODone 25MG PER 1/2 TABLET PO SCH (21:52)
[2019-05-14 04:00] VITALS: BP 146/88
[2019-05-14] MEDS: GABAPENTIN 100 MG CAP PO SCH ×3 (08:19→19:56)
[2019-05-14] MEDS: DOCUSATE SODIUM 100 MG CAP PO SCH ×2 (08:20→19:57)
[2019-05-14] MEDS: BISACODYL 5 MG TAB PO SCH (08:20)
[2019-05-14] MEDS: ACETAMINOPHEN 500 MG TAB PO SCH ×3 (08:20→20:00)
[2019-05-14] MEDS: PANTOPRAZOLE 40MG TAB (PROTONIX) PO SCH (08:20)
[2019-05-14] MEDS: POTASSIUM CHLORIDE 10% LIQ 20 MEQ/15 ML UDC PO SCH (08:20)
[2019-05-14] MEDS: MECLIZINE 25 MG TABLET PO SCH ×3 (08:20→19:56)
[2019-05-14] MEDS: OYSTER SHELL CALCIUM 500 MG TAB PO SCH (08:20)
[2019-05-14] MEDS: amLODIPine 5 MG TAB PO SCH (08:20)
[2019-05-14] MEDS: HEPARIN SOD (PORCINE) 5000 UNITS/ML VIAL SC SCH ×2 (08:20→19:56)
[2019-05-14 14:00] VITALS: BP 131/79
[2019-05-14] MEDS: traZODone 25MG PER 1/2 TABLET PO SCH (19:56)
[2019-05-14] MEDS: SENNA 8.6 MG TAB (SENOKOT) PO SCH (19:56)
[2019-05-14] MEDS: ROSUVASTATIN 10 MG TAB (CRESTOR) PO SCH (19:57)
[2019-05-14 20:00] VITALS: BP 130/78
[2019-05-15 06:00] VITALS: BP 131/72
[2019-05-15] MEDS: OYSTER SHELL CALCIUM 500 MG TAB PO SCH (08:15)
[2019-05-15] MEDS: DOCUSATE SODIUM 100 MG CAP PO SCH ×2 (08:15→20:30)
[2019-05-15] MEDS: PANTOPRAZOLE 40MG TAB (PROTONIX) PO SCH (08:15)
[2019-05-15] MEDS: amLODIPine 5 MG TAB PO SCH (08:15)
[2019-05-15] MEDS: HEPARIN SOD (PORCINE) 5000 UNITS/ML VIAL SC SCH ×2 (08:15→20:32)
[2019-05-15] MEDS: POTASSIUM CHLORIDE 10% LIQ 20 MEQ/15 ML UDC PO SCH (08:15)
[2019-05-15] MEDS: MECLIZINE 25 MG TABLET PO SCH ×3 (08:15→20:32)
[2019-05-15] MEDS: GABAPENTIN 100 MG CAP PO SCH ×3 (08:15→20:31)
[2019-05-15] MEDS: ACETAMINOPHEN 500 MG TAB PO SCH ×2 (08:15→15:23)
[2019-05-15] MEDS: BISACODYL 5 MG TAB PO SCH (08:15)
[2019-05-15 14:00] VITALS: BP 142/68
--- NOTE | 2019-05-15 18:46 | CR.PDOC ---
General Date of Consultation: May 15, 2019 Consultation REASON FOR CONSULTATION/CHIEF COMPLAINT: Dizziness HISTORY OF PRESENT ILLNESS: Patient is 64 years old female with past history of trigeminal neuralgia received treatment underwent an electic left sided suboccipital craniectomy with decompression of this nerve on 04/22/19 with EVD placement at [facility]. The procedure was complicated with brain swelling secondary to acute hemorrhage with surrounding edema seen within the right cerebellar hemisphere. A small area of restricted diffusion in the area of hemorrhage can be due to the hemorrhage although ischemia/infarction cannot be entirely excluded. Cerebellar tonsillar herniation and near complete effacement of the fourth ventricle. Patient underwent a left-sided decompressive craniotomy on 04/25/19. After surgery patient developed double vision, dizziness, unbalanced gait. She stated that on she will have appointment with Dr. Murphy in [place] remove stitches. Patient stated that she doesn't have neurologist. Also she stated that her dizziness and double vision have been persistent despite of meclizine and physical therapy. ALLERGIES: Please see below. HOME MEDICATIONS: Please see below. PAST MEDICAL HISTORY: trigeminal neuralgia, cervical and lumbar spondylosis, GERD PAST SURGICAL HISTORY: Craniotomy FAMILY HISTORY: Father: Mesothelioma Mother: Stroke SOCIAL HISTORY: Tobacco use: Denied ETOH: Occasional Illicit drug use: Denied 10 point review of system is negative except as listed above PHYSICAL EXAMINATION: VITAL SIGNS: Please see below. Objective:VITAL SIGNS: Please see below. GENERAL APPEARANCE: Well-nourished, well-developed, not in apparent distress HEENT: Normocephalic, atraumatic. Mucous members moist and pink CARDIOVASCULAR: Regular rate and rhythm. No murmurs, rubs or gallops. Radial pulses are intact. There is no lower extremity edema LUNGS: . Diminished lung sounds, scattered lung sounds on the left side ABDOMEN: Bowel sounds are hypoactive. Abdomen is soft and nontender. MUSCULOSKELETAL: Range of motion is intact in all 4 extremities NEUROLOGICAL: Double vision, deficiency of cranial nerve V on the left side, numbness, unbalanced walk, no nuchal rigidity, muscle strength 5 out of 5 LABORATORY DATA: Please see below. ASSESSMENT/PLAN: Patient is 64 years old female with past history of trigeminal neuralgia received treatment underwent an electic left sided suboccipital craniectomy with decompression of this nerve on 04/22/19 with EVD placement at [facility]. Status post craniotomy secondary to complicated trigeminal neuralgia surgical treatment I recommend neurologist consult for continuation of patient care. Vital Signs/I&O Vital Signs Date Time Temp Pulse Resp B/P (MAP) Pulse Ox O2 Delivery O2 Flow Rate FiO2 05/15/19 14:00 98.2 93 18 142/68 (92) 94 I&O- Last 24 Hours up to 6 AM 05/15/19 06:00 Intake Total 920 ml Output Total 0 ml Balance 920 ml Allergies Coded Allergies: No Known Allergies (Unverified , 02/23/18) Home Medications Scheduled Amlodipine Besylate (Amlodipine Besylate) 10 Mg Tablet, 10 MG PO DAILY, (Reported) Calcium Carbonate/Vitamin D3 (Calcium 500-Vit D3 200 Tablet) 1 Each Tablet, 2 TAB PO DAILY, (Reported) Heparin Sodium,Porcine (Heparin Sodium) 5,000 Unit/1 Ml Vial, 5,000 UNIT SC BID, (Reported) STARTED AT [facility] Melatonin (Melatonin) 3 Mg Tablet, 3 MG PO QHS, (Reported) Pantoprazole Sodium (Pantoprazole Sodium) 40 Mg Tablet.dr, 40 MG PO DAILY, (Reported) WAS ON NEXIUM AT HOME Potassium Chloride (Potassium Chloride) 20 Meq Tab.er.prt, 20 MEQ PO BID, (Reported) PLEASE USE POWDER PACKET Quetiapine Fumarate (Quetiapine Fumarate) 25 Mg Tablet, 25 MG PO QHS, (Reported) STARTED AT [facility] Rosuvastatin Calcium (Crestor) 10 Mg Tablet, 10 MG PO QHS, (Reported) Sennosides (Senna) 8.6 Mg Tablet, 2 TAB PO QHS, (Reported) Scheduled PRN Acetaminophen (Tylenol) 325 Mg Tablet, 975 MG PO Q8H PRN for PAIN, (Reported) Bisacodyl (Bisacodyl) 10 Mg Supp.rect, 10 MG DC DAILY PRN for CONSTIPATION, (Reported) Milk Of Magnesia (Milk of Magnesia) 2,400 Mg/10 Ml Oral.susp, 30 ML PO DAILY PRN for CONSTIPATION, (Reported) Polyethylene Glycol 3350 (Miralax) 119 Gm Powder, 17 GM PO DAILY PRN for CONSTIPATION, (Reported) ALISON DICKSON DO May 15, 2019 18:46
[2019-05-15 20:00] VITALS: BP 123/80
[2019-05-15] MEDS: traZODone 25MG PER 1/2 TABLET PO SCH (20:30)
[2019-05-15] MEDS: SENNA 8.6 MG TAB (SENOKOT) PO SCH (20:32)
[2019-05-15] MEDS: ROSUVASTATIN 10 MG TAB (CRESTOR) PO SCH (20:32)
[2019-05-15] MEDS: ACETAMINOPHEN 325 MG/10.15 ML UDC PO SCH (20:39)
[2019-05-16 06:00] VITALS: BP 112/59
[2019-05-16] MEDS: ACETAMINOPHEN 325 MG/10.15 ML UDC PO SCH ×3 (08:28→20:39)
[2019-05-16] MEDS: POTASSIUM CHLORIDE 10% LIQ 20 MEQ/15 ML UDC PO SCH (08:28)
[2019-05-16] MEDS: GABAPENTIN 100 MG CAP PO SCH ×2 (08:29→20:38)
[2019-05-16] MEDS: OYSTER SHELL CALCIUM 500 MG TAB PO SCH (08:29)
[2019-05-16] MEDS: HEPARIN SOD (PORCINE) 5000 UNITS/ML VIAL SC SCH (08:29)
[2019-05-16] MEDS: MECLIZINE 25 MG TABLET PO SCH ×3 (08:29→20:38)
[2019-05-16] MEDS: amLODIPine 5 MG TAB PO SCH (08:29)
[2019-05-16] MEDS: PANTOPRAZOLE 40MG TAB (PROTONIX) PO SCH (08:29)
[2019-05-16] MEDS: DOCUSATE SODIUM 100 MG CAP PO SCH ×2 (08:29→20:38)
[2019-05-16] MEDS: BISACODYL 5 MG TAB PO SCH (08:29)
[2019-05-16 11:21] LABS: BASO % 0.1 % (0.0-1.0); HEMATOCRIT 30.5 % (36.0-47.0); HEMOGLOBIN 10.2 g/dl (12.0-15.5); LYMPH # 1.4 10^3/uL (1.5-5.0); LYMPH % 14.7 % (24.0-44.0); MEAN CORPUSCULAR HEMOGLOBIN 29.4 pg (27.0-33.0); MEAN CORPUSCULAR HGB CONC 33.4 g/dl (32.0-36.5); MEAN CORPUSCULAR VOLUME 87.9 fl (80.0-96.0); MONO # 0.9 10^3/uL (0.0-0.8); MONO % 9.4 % (0.0-5.0); NEUTROPHILS # 7.1 10^3/uL (1.5-8.5); NEUTROPHILS % 74.4 % (36.0-66.0); PLATELET COUNT, AUTOMATED 300 10^3/uL (150-450); RED BLOOD COUNT 3.47 10^6/uL (4.00-5.40); WHITE BLOOD COUNT 9.6 10^3/uL (4.0-10.0)
[2019-05-16 11:42] LABS: BLOOD UREA NITROGEN 15 MG/DL (7-18); CALCIUM LEVEL 9.1 MG/DL (8.8-10.2); CARBON DIOXIDE LEVEL 26 MEQ/L (21-32); CHLORIDE LEVEL 101 MEQ/L (98-107); CREATININE FOR GFR 0.91 MG/DL (0.55-1.30); GLOMERULAR FILTRATION RATE > 60.0 (>45); GLUCOSE, FASTING 104 MG/DL (70-100); POTASSIUM SERUM 3.8 MEQ/L (3.5-5.1); SODIUM LEVEL 135 MEQ/L (136-145)
[2019-05-16 14:00] VITALS: BP 105/62
[2019-05-16 19:49] VITALS: BP 119/66
[2019-05-16] MEDS: traZODone 25MG PER 1/2 TABLET PO SCH (20:38)
[2019-05-16] MEDS: SENNA 8.6 MG TAB (SENOKOT) PO SCH (20:38)
[2019-05-16] MEDS: ROSUVASTATIN 10 MG TAB (CRESTOR) PO SCH (20:38)
[2019-05-17 06:07] VITALS: BP 126/73
[2019-05-17] MEDS: ACETAMINOPHEN 325 MG/10.15 ML UDC PO SCH ×3 (08:33→21:08)
[2019-05-17] MEDS: amLODIPine 10 MG TAB PO SCH (08:37)
[2019-05-17] MEDS: GABAPENTIN 100 MG CAP PO SCH ×2 (08:37→21:07)
[2019-05-17] MEDS: MECLIZINE 25 MG TABLET PO SCH ×3 (08:38→21:08)
[2019-05-17] MEDS: DOCUSATE SODIUM 100 MG CAP PO SCH ×2 (08:38→21:07)
[2019-05-17] MEDS: OYSTER SHELL CALCIUM 500 MG TAB PO SCH (08:38)
[2019-05-17] MEDS: PANTOPRAZOLE 40MG TAB (PROTONIX) PO SCH (08:38)
[2019-05-17] MEDS: BISACODYL 5 MG TAB PO SCH (08:38)
--- NOTE | 2019-05-17 12:33 | IPNPDOC ---
PM&R Progress Note DATE OF SERVICE: May 17, 2019 Treating Engineer Progress Note Subjective: Patient seen in therapy stating she has intermittent dizziness, but is able to tolerate her sessions. She cannot tell if the meclizine is helping. REVIEW OF SYSTEMS: The following is a completed review of systems and has been reviewed. Review of systems otherwise unremarkable. PAIN: Patient self reports headache EYES: +double vision EARS, NOSE, & THROAT: No throat pain, +mild dysphagia CARDIOVASCULAR: Denies chest pain or palpitations PULMONARY: Denies shortness of breath GASTROINTESTINAL:Denies constipation/diarrhea. GENITOURINARY: denies dysuria MUSCULOSKELETAL: +arthritis NEUROLOGICAL:+ trigeminal neuralgia, +dizziness (intermittent) HEMATOLOGICAL: denies easy bruising SKIN: craniotomy incision PSYCHIATRIC: Unremarkable All other review of systems found to be negative. PHYSICAL EXAMINATION: VITAL SIGNS: Please see below. GENERAL: Pleasant and cooperative. No acute distress. HEENT: PERRL. Extraocular movements grossly intact. Clear conjunctiva. CARDIOVASCULAR: Regular rate and rhythm. No murmurs, rubs, or gallops LUNGS: Clear to auscultation bilaterally. No wheezes. No rhonchi ABDOMEN: Soft, nontender, nondistended. Positive bowel sounds. Normal active bowel sounds NEUROLOGICAL: Alert and oriented times three. Cranial nerves II through XII grossly intact except decreased sensation left V2-3. Sensation grossly intact (-) babinksi/clonus +dysmetria with finger to nose on the left (mild) EXTREMITIES: 5\5 strength bilateral upper extremities.5\5 strength right lower extremity. 5/5 strength in left lower extremity. SKIN: left fronto-parietal and occipital craniotomy incision,s c/d/i ASSESSMENT:64-year-old F with past medical history of trigeminal neuralgia who presents status post decompressive craniotomy with cerebellar edema requiring repeat craniotomy. PLAN: 1.Rehab: PT- strengthen, stretch, maintain ROM bilat LE, advance gait training, dynamic balance, fall recovery OT- strengthen, stretch, maintain ROM bilat UE, ADLs LIGHTING ADVISER: evaluate for cognitive impairment and for dysphagia- c/u mechanical soft diet 2. Neuro: pmh trigeminal neuralgia s/p decompression on 04/22/19 complicated by cerebellar edema with tonsillar herniation s/p decompression craniotomy 04/25/19 -c/u meclizine to 25mg TID for dizziness -continue decadron 2mg TID, patient ambulating well in therapy with intermittent mild lean to the left which she is able to correct with cueing -f/u with neurosurgeon pushed back to 10-9, ok to remove sutures while here -will need outpatient vision therapy, referral sent 3. Cardio: HTN c/u BP meds, medicine consulted to assist in management 4. Resp: encourage incentive spirometry, monitor for infection 5. : monitor PVRs 6. Pain: Tylenol and c/u to taper gabapentin, will c/u fiorecet prn 7. DVT ppx: continue and teds 8. GI ppx: Protonix 9. Heme: drop in Hgb from 12 to 10.2 on admission, FOBT ordered, will monitor 9. Psych: patient with episodes of agitation at [facility], c/u trazodone qHS standing at night and prn for agitation-stable 10. Dispo: pending insurance approval to home, progressing towards goals Allergies Coded Allergies: No Known Allergies (Unverified , 02/23/18) Vital Signs Vital Signs Date Time Temp Pulse Resp B/P (MAP) Pulse Ox O2 Delivery O2 Flow Rate FiO2 05/17/19 08:37 76 126/73 05/17/19 06:07 97.0 18 97 Current Medications Current Medications Current Medications Medications (Trade) Dose Ordered Sig/Rufino Route PRN Reason Start Time Stop Time Status Last Admin Dose Admin Acetaminophen (Tylenol Suspension) 1,000 mg TID PO 05/15/19 21:00 05/17/19 08:33 Acetaminophen (Tylenol Tab) 650 mg Q4HP PRN PO MILD PAIN (PS 1-4) 05/11/19 11:30 05/11/19 12:48 DC Acetaminophen (Tylenol Tab) 1,000 mg TID PO 05/11/19 16:00 05/15/19 16:24 DC 05/15/19 15:23 Acetaminophen/ Butalbital/ Caffeine (Fioricet) 1 ea Q6HP PRN PO HEADACHE 05/12/19 16:00 Amlodipine Besylate (Norvasc) 5 mg DAILY PO 05/13/19 09:00 05/16/19 11:30 DC 05/16/19 08:29 Amlodipine Besylate (Norvasc) 10 mg DAILY PO 05/12/19 09:00 05/12/19 10:50 DC 05/12/19 09:42 Amlodipine Besylate (Norvasc) 10 mg DAILY PO 05/17/19 09:00 05/17/19 08:37 Bisacodyl (Dulcolax Suppository) 10 mg DAILYPRN PRN [place] CONSTIPATION 05/11/19 11:30 Bisacodyl (Dulcolax Tab) 5 mg DAILY PO 05/13/19 13:00 05/17/19 08:38 Calcium Carbonate (Oscal) 500 mg DAILY PO 05/12/19 09:00 05/17/19 08:38 Dexamethasone (Decadron) 2 mg TID PO 05/13/19 11:00 05/17/19 08:37 Docusate Sodium (Colace) 100 mg BID PO 05/11/19 21:00 05/17/19 08:38 Gabapentin (Neurontin) 100 mg BID PO 05/16/19 21:00 05/17/19 08:37 Gabapentin (Neurontin) 100 mg TID PO 05/11/19 16:00 05/16/19 11:30 DC 05/16/19 08:29 Heparin Sodium (Porcine) (Heparin) 5,000 units Q12H SC 05/11/19 21:00 05/16/19 11:26 DC 05/16/19 08:29 Home Med (Med Rec Complete!) ASDIRECTED XX 05/11/19 12:45 05/11/19 12:41 DC Meclizine HCl (Antivert) 12.5 mg TID PO 05/11/19 13:00 05/12/19 10:50 DC 05/12/19 09:42 Meclizine HCl (Antivert) 25 mg TID PO 05/12/19 16:00 05/17/19 08:38 Ondansetron HCl (Zofran Odt) 4 mg Q6HP PRN PO NAUSEA OR VOMITING 05/12/19 11:00 Pantoprazole Sodium (Protonix) 40 mg DAILY PO 05/12/19 09:00 05/17/19 08:38 Potassium Chloride (Micro-K Extencaps) 20 meq DAILY PO 05/12/19 09:00 05/12/19 09:59 DC 05/12/19 09:41 Potassium Chloride (Potassium Chloride Liquid) 20 meq DAILY PO 05/13/19 09:00 05/16/19 14:21 DC 05/16/19 08:28 Quetiapine Fumarate (SEROquel) 12.5 mg QHS PRN PO AGITATION 05/11/19 11:45 05/13/19 11:49 DC Rosuvastatin Calcium (Crestor) 10 mg QHS PO 05/11/19 21:00 05/16/19 20:38 Senna (Senokot) 1 tab QHS PO 05/11/19 21:00 05/16/19 20:38 Trazodone HCl (Desyrel) 25 mg Q6HP PRN PO AGITATION 05/11/19 11:45 Trazodone HCl (Desyrel) 25 mg QHS PO 05/11/19 21:00 05/16/19 20:38 HECTOR YAO MD May 17, 2019 12:33
--- NOTE | 2019-05-17 12:33 | IPNPDOC ---
PM&R Progress Note DATE OF SERVICE: May 16, 2019 Formwork Carpenter Progress Note Subjective: Patient seen this morning stating she is feeling well, reports she is tired from therapy in the morning, then seen later in OT working on obstacle courses, stating she feels well. Discussed with and patient that it will take several months to recover from her brain injury. REVIEW OF SYSTEMS: The following is a completed review of systems and has been reviewed. Review of systems otherwise unremarkable. PAIN: Patient self reports headache EYES: +double vision EARS, NOSE, & THROAT: No throat pain, +mild dysphagia CARDIOVASCULAR: Denies chest pain or palpitations PULMONARY: Denies shortness of breath GASTROINTESTINAL:Denies constipation/diarrhea. GENITOURINARY: denies dysuria MUSCULOSKELETAL: +arthritis NEUROLOGICAL:+ trigeminal neuralgia, +dizziness (intermittent) HEMATOLOGICAL: denies easy bruising SKIN: craniotomy incision PSYCHIATRIC: Unremarkable All other review of systems found to be negative. PHYSICAL EXAMINATION: VITAL SIGNS: Please see below. GENERAL: Pleasant and cooperative. No acute distress. HEENT: PERRL. Extraocular movements grossly intact. Clear conjunctiva. CARDIOVASCULAR: Regular rate and rhythm. No murmurs, rubs, or gallops LUNGS: Clear to auscultation bilaterally. No wheezes. No rhonchi ABDOMEN: Soft, nontender, nondistended. Positive bowel sounds. Normal active bowel sounds NEUROLOGICAL: Alert and oriented times three. Cranial nerves II through XII grossly intact except decreased sensation left V2-3. Sensation grossly intact (-) babinksi/clonus +dysmetria with finger to nose on the left (mild) EXTREMITIES: 5\5 strength bilateral upper extremities.5\5 strength right lower extremity. 5/5 strength in left lower extremity. SKIN: left fronto-parietal and occipital craniotomy incision,s c/d/i ASSESSMENT:64-year-old F with past medical history of trigeminal neuralgia who presents status post decompressive craniotomy with cerebellar edema requiring repeat craniotomy. PLAN: 1.Rehab: PT- strengthen, stretch, maintain ROM bilat LE, advance gait training, dynamic balance, fall recovery OT- strengthen, stretch, maintain ROM bilat UE, ADLs SCHOOL COMMISSIONER: evaluate for cognitive impairment and for dysphagia 2. Neuro: pmh trigeminal neuralgia s/p decompression on 04/22/19 complicated by cerebellar edema with tonsillar herniation s/p decompression craniotomy 04/25/19 -c/u meclizine to 25mg TID for dizziness -continue decadron 2mg TID, patient ambulating well in therapy with intermittent mild lean to the left which she is able to correct with cueing, conversant- will need to reschedule neurosurgeon appointment, no concern at this time for neurological decline -will need outpatient vision therapy 3. Cardio: HTN c/u BP meds, medicine consulted to assist in management 4. Resp: encourage incentive spirometry, monitor for infection 5. : monitor PVRs 6. Pain: Tylenol and will taper gabapentin, will c/u fiorecet prn 7. DVT ppx: will hold heparin q12h as ambulating well and continue and teds 8. GI ppx: Protonix 9. Heme: drop in Hgb from 12 to 10.2 on admission, FOBT ordered 9. Psych: patient with episodes of agitation at [facility], will order trazodone qHS standing at night and prn for agitation-stable 10. Dispo: TBD Allergies Coded Allergies: No Known Allergies (Unverified , 02/23/18) Vital Signs Vital Signs Date Time Temp Pulse Resp B/P (MAP) Pulse Ox O2 Delivery O2 Flow Rate FiO2 05/17/19 08:37 76 126/73 05/17/19 06:07 97.0 18 97 Current Medications Current Medications Current Medications Medications (Trade) Dose Ordered Sig/Rufino Route PRN Reason Start Time Stop Time Status Last Admin Dose Admin Acetaminophen (Tylenol Suspension) 1,000 mg TID PO 05/15/19 21:00 05/17/19 08:33 Acetaminophen (Tylenol Tab) 650 mg Q4HP PRN PO MILD PAIN (PS 1-4) 05/11/19 11:30 05/11/19 12:48 DC Acetaminophen (Tylenol Tab) 1,000 mg TID PO 05/11/19 16:00 05/15/19 16:24 DC 05/15/19 15:23 Acetaminophen/ Butalbital/ Caffeine (Fioricet) 1 ea Q6HP PRN PO HEADACHE 05/12/19 16:00 Amlodipine Besylate (Norvasc) 5 mg DAILY PO 05/13/19 09:00 05/16/19 11:30 DC 05/16/19 08:29 Amlodipine Besylate (Norvasc) 10 mg DAILY PO 05/12/19 09:00 05/12/19 10:50 DC 05/12/19 09:42 Amlodipine Besylate (Norvasc) 10 mg DAILY PO 05/17/19 09:00 05/17/19 08:37 Bisacodyl (Dulcolax Suppository) 10 mg DAILYPRN PRN [place] CONSTIPATION 05/11/19 11:30 Bisacodyl (Dulcolax Tab) 5 mg DAILY PO 05/13/19 13:00 05/17/19 08:38 Calcium Carbonate (Oscal) 500 mg DAILY PO 05/12/19 09:00 05/17/19 08:38 Dexamethasone (Decadron) 2 mg TID PO 05/13/19 11:00 05/17/19 08:37 Docusate Sodium (Colace) 100 mg BID PO 05/11/19 21:00 05/17/19 08:38 Gabapentin (Neurontin) 100 mg BID PO 05/16/19 21:00 05/17/19 08:37 Gabapentin (Neurontin) 100 mg TID PO 05/11/19 16:00 05/16/19 11:30 DC 05/16/19 08:29 Heparin Sodium (Porcine) (Heparin) 5,000 units Q12H SC 05/11/19 21:00 05/16/19 11:26 DC 05/16/19 08:29 Home Med (Med Rec Complete!) ASDIRECTED XX 05/11/19 12:45 05/11/19 12:41 DC Meclizine HCl (Antivert) 12.5 mg TID PO 05/11/19 13:00 05/12/19 10:50 DC 05/12/19 09:42 Meclizine HCl (Antivert) 25 mg TID PO 05/12/19 16:00 05/17/19 08:38 Ondansetron HCl (Zofran Odt) 4 mg Q6HP PRN PO NAUSEA OR VOMITING 05/12/19 11:00 Pantoprazole Sodium (Protonix) 40 mg DAILY PO 05/12/19 09:00 05/17/19 08:38 Potassium Chloride (Micro-K Extencaps) 20 meq DAILY PO 05/12/19 09:00 05/12/19 09:59 DC 05/12/19 09:41 Potassium Chloride (Potassium Chloride Liquid) 20 meq DAILY PO 05/13/19 09:00 05/16/19 14:21 DC 05/16/19 08:28 Quetiapine Fumarate (SEROquel) 12.5 mg QHS PRN PO AGITATION 05/11/19 11:45 05/13/19 11:49 DC Rosuvastatin Calcium (Crestor) 10 mg QHS PO 05/11/19 21:00 05/16/19 20:38 Senna (Senokot) 1 tab QHS PO 05/11/19 21:00 05/16/19 20:38 Trazodone HCl (Desyrel) 25 mg Q6HP PRN PO AGITATION 05/11/19 11:45 Trazodone HCl (Desyrel) 25 mg QHS PO 05/11/19 21:00 05/16/19 20:38 HECTOR YAO MD May 17, 2019 12:33
[2019-05-17 14:00] VITALS: BP 124/81
[2019-05-17 19:51] VITALS: BP 136/81
[2019-05-17] MEDS: traZODone 25MG PER 1/2 TABLET PO SCH (21:07)
[2019-05-17] MEDS: ROSUVASTATIN 10 MG TAB (CRESTOR) PO SCH (21:07)
[2019-05-17] MEDS: SENNA 8.6 MG TAB (SENOKOT) PO SCH (21:07)
[2019-05-18 06:03] VITALS: BP 140/60
[2019-05-18 06:29] LABS: BASO % 0.3 % (0.0-1.0); HEMATOCRIT 31.3 % (36.0-47.0); HEMOGLOBIN 10.4 g/dl (12.0-15.5); LYMPH # 1.3 10^3/uL (1.5-5.0); LYMPH % 20.2 % (24.0-44.0); MEAN CORPUSCULAR HEMOGLOBIN 29.5 pg (27.0-33.0); MEAN CORPUSCULAR HGB CONC 33.2 g/dl (32.0-36.5); MEAN CORPUSCULAR VOLUME 88.9 fl (80.0-96.0); MONO # 0.6 10^3/uL (0.0-0.8); MONO % 8.5 % (0.0-5.0); NEUTROPHILS # 4.4 10^3/uL (1.5-8.5); NEUTROPHILS % 67.7 % (36.0-66.0); PLATELET COUNT, AUTOMATED 264 10^3/uL (150-450); RED BLOOD COUNT 3.52 10^6/uL (4.00-5.40); WHITE BLOOD COUNT 6.4 10^3/uL (4.0-10.0)
[2019-05-18 06:49] LABS: BLOOD UREA NITROGEN 17 MG/DL (7-18); CALCIUM LEVEL 8.8 MG/DL (8.8-10.2); CARBON DIOXIDE LEVEL 26 MEQ/L (21-32); CHLORIDE LEVEL 105 MEQ/L (98-107); CREATININE FOR GFR 0.85 MG/DL (0.55-1.30); GLOMERULAR FILTRATION RATE > 60.0 (>45); GLUCOSE, FASTING 109 MG/DL (70-100); POTASSIUM SERUM 4.1 MEQ/L (3.5-5.1); SODIUM LEVEL 139 MEQ/L (136-145)
[2019-05-18] MEDS: MECLIZINE 25 MG TABLET PO SCH ×3 (08:19→20:42)
[2019-05-18] MEDS: GABAPENTIN 100 MG CAP PO SCH ×2 (08:19→20:42)
[2019-05-18] MEDS: PANTOPRAZOLE 40MG TAB (PROTONIX) PO SCH (08:19)
[2019-05-18] MEDS: amLODIPine 10 MG TAB PO SCH (08:19)
[2019-05-18] MEDS: OYSTER SHELL CALCIUM 500 MG TAB PO SCH (08:19)
[2019-05-18] MEDS: BISACODYL 5 MG TAB PO SCH (08:19)
[2019-05-18] MEDS: DOCUSATE SODIUM 100 MG CAP PO SCH ×2 (08:19→20:42)
[2019-05-18] MEDS: ACETAMINOPHEN 325 MG/10.15 ML UDC PO SCH ×3 (08:19→20:43)
[2019-05-18 14:00] VITALS: BP 152/81
[2019-05-18] MEDS ORDERED: MAALOX 30 ML SUSP *UDC PO PRN (14:00)
--- NOTE | 2019-05-18 15:09 | IPNPDOC ---
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 She has been given room privileges with her . REVIEW OF SYSTEMS: The following is a completed review of systems and has been reviewed. Review of systems otherwise unremarkable. PAIN: Patient self reports headache EYES: +double vision EARS, NOSE, & THROAT: No throat pain, +mild dysphagia CARDIOVASCULAR: Denies chest pain or palpitations PULMONARY: Denies shortness of breath GASTROINTESTINAL:Denies constipation/diarrhea. GENITOURINARY: denies dysuria MUSCULOSKELETAL: +arthritis NEUROLOGICAL:+ trigeminal neuralgia, +dizziness (intermittent) HEMATOLOGICAL: denies easy bruising SKIN: craniotomy incision PSYCHIATRIC: Unremarkable All other review of systems found to be negative. PHYSICAL EXAMINATION: VITAL SIGNS: Please see below. GENERAL: Pleasant and cooperative. No acute distress. HEENT: PERRL. Extraocular movements grossly intact. Clear conjunctiva. CARDIOVASCULAR: Regular rate and rhythm. No murmurs, rubs, or gallops LUNGS: Clear to auscultation bilaterally. No wheezes. No rhonchi ABDOMEN: Soft, nontender, nondistended. Positive bowel sounds. Normal active bowel sounds NEUROLOGICAL: Alert and oriented times three. Cranial nerves II through XII grossly intact except decreased sensation left V2-3. Sensation grossly intact (-) babinksi/clonus +dysmetria with finger to nose on the left (mild) EXTREMITIES: 5\5 strength bilateral upper extremities.5\5 strength right lower extremity. 5/5 strength in left lower extremity. SKIN: left fronto-parietal and occipital craniotomy incision,s c/d/i ASSESSMENT:64-year-old F with past medical history of trigeminal neuralgia who presents status post decompressive craniotomy with cerebellar edema requiring repeat craniotomy. 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 Neuro: pmh trigeminal neuralgia s/p decompression on 04/22/19 complicated by cerebellar edema with tonsillar herniation s/p decompression craniotomy 04/25/19 -c/u meclizine to 25mg TID for dizziness -continue decadron 2mg TID, patient ambulating well in therapy with intermittent mild lean to the left which she is able to correct with cueing -f/u with neurosurgeon pushed back to 10-9, ok to remove sutures while here -will need outpatient vision therapy, referral sent 3. Cardio: HTN c/u BP meds, medicine consulted to assist in management 4. Resp: encourage incentive spirometry, monitor for infection 5. : monitor PVRs 6. Pain: Tylenol and c/u to taper gabapentin, will c/u fiorecet prn 7. DVT ppx: continue and teds 8. GI ppx: Protonix 9. Heme: drop in Hgb from 12 to 10.2 on admission now stable at 10.4, FOBT ordered, will monitor 9. Psych: patient with episodes of agitation at [facility], c/u trazodone qHS standing at night and prn for agitation-stable 10. Dispo: pending insurance approval to home, progressing towards goals Allergies Coded Allergies: No Known Allergies (Unverified , 02/23/18) Vital Signs Vital Signs Date Time Temp Pulse Resp B/P (MAP) Pulse Ox O2 Delivery O2 Flow Rate FiO2 05/18/19 14:00 97.2 104 18 152/81 (104) 96 Laboratory Data CBC/BMP Laboratory Tests 05/18/19 06:09 Red Blood Count 3.52 L, Mean Corpuscular Volume 88.9, Mean Corpuscular Hemoglobin 29.5, Mean Corpuscular Hemoglobin Concent 33.2, Red Cell Distribution Width 14.2, Neutrophils (%) (Auto) 67.7 H, Lymphocytes (%) (Auto) 20.2 L, Monocytes (%) (Auto) 8.5 H, Eosinophils (%) (Auto) 0.0, Basophils (%) (Auto) 0.3, Neutrophils # (Auto) 4.4, Lymphocytes # (Auto) 1.3 L, Monocytes # (Auto) 0.6, Eosinophils # (Auto) 0.0, Basophils # (Auto) 0.0, Calcium Level 8.8 Labs 24H Laboratory Tests 2 05/18/19 06:09: Immature Granulocyte % (Auto) 3.3H, White Blood Count 6.4, Red Blood Count 3.52L, Hemoglobin 10.4L, Hematocrit 31.3L, Mean Corpuscular Volume 88.9, Mean Corpuscular Hemoglobin 29.5, Mean Corpuscular Hemoglobin Concent 33.2, Red Cell Distribution Width 14.2, Platelet Count 264, Neutrophils (%) (Auto) 67.7H, Lymphocytes (%) (Auto) 20.2L, Monocytes (%) (Auto) 8.5H, Eosinophils (%) (Auto) 0.0, Basophils (%) (Auto) 0.3, Neutrophils # (Auto) 4.4, Lymphocytes # (Auto) 1.3L, Monocytes # (Auto) 0.6, Eosinophils # (Auto) 0.0, Basophils # (Auto) 0.0, Nucleated Red Blood Cells % (auto) 0.0, Anion Gap 8, Glomerular Filtration Rate > 60.0, Blood Urea Nitrogen 17, Creatinine 0.85, Sodium Level 139, Potassium Level 4.1, Chloride Level 105, Carbon Dioxide Level 26, Calcium Level 8.8 Microbiology Microbiology 05/18/19 Stool Occult Blood (SILVIA) - Final, Complete Current Medications Current Medications Current Medications Medications (Trade) Dose Ordered Sig/Rufnio Route PRN Reason Start Time Stop Time Status Last Admin Dose Admin Acetaminophen (Tylenol Suspension) 1,000 mg TID PO 05/15/19 21:00 05/18/19 08:19 Acetaminophen (Tylenol Tab) 650 mg Q4HP PRN PO MILD PAIN (PS 1-4) 05/11/19 11:30 05/11/19 12:48 DC Acetaminophen (Tylenol Tab) 1,000 mg TID PO 05/11/19 16:00 05/15/19 16:24 DC 05/15/19 15:23 Acetaminophen/ Butalbital/ Caffeine (Fioricet) 1 ea Q6HP PRN PO HEADACHE 05/12/19 16:00 Al Hydrox/Mg Hydrox/Simethicone (Mylanta) 30 ml Q4HP PRN PO INDIGESTION 05/18/19 14:00 05/18/19 14:09 Amlodipine Besylate (Norvasc) 5 mg DAILY PO 05/13/19 09:00 05/16/19 11:30 DC 05/16/19 08:29 Amlodipine Besylate (Norvasc) 10 mg DAILY PO 05/12/19 09:00 05/12/19 10:50 DC 05/12/19 09:42 Amlodipine Besylate (Norvasc) 10 mg DAILY PO 05/17/19 09:00 05/18/19 08:19 Bisacodyl (Dulcolax Suppository) 10 mg DAILYPRN PRN [place] CONSTIPATION 05/11/19 11:30 Bisacodyl (Dulcolax Tab) 5 mg DAILY PO 05/13/19 13:00 05/18/19 08:19 Calcium Carbonate (Oscal) 500 mg DAILY PO 05/12/19 09:00 05/18/19 08:19 Dexamethasone (Decadron) 2 mg TID PO 05/13/19 11:00 05/18/19 08:19 Docusate Sodium (Colace) 100 mg BID PO 05/11/19 21:00 05/18/19 08:19 Gabapentin (Neurontin) 100 mg BID PO 05/16/19 21:00 05/18/19 08:19 Gabapentin (Neurontin) 100 mg TID PO 05/11/19 16:00 05/16/19 11:30 DC 05/16/19 08:29 Heparin Sodium (Porcine) (Heparin) 5,000 units Q12H SC 05/11/19 21:00 05/16/19 11:26 DC 05/16/19 08:29 Home Med (Med Rec Complete!) ASDIRECTED XX 05/11/19 12:45 05/11/19 12:41 DC Meclizine HCl (Antivert) 12.5 mg TID PO 05/11/19 13:00 05/12/19 10:50 DC 05/12/19 09:42 Meclizine HCl (Antivert) 25 mg TID PO 05/12/19 16:00 05/18/19 08:19 Ondansetron HCl (Zofran Odt) 4 mg Q6HP PRN PO NAUSEA OR VOMITING 05/12/19 11:00 Pantoprazole Sodium (Protonix) 40 mg DAILY PO 05/12/19 09:00 05/18/19 08:19 Potassium Chloride (Micro-K Extencaps) 20 meq DAILY PO 05/12/19 09:00 05/12/19 09:59 DC 05/12/19 09:41 Potassium Chloride (Potassium Chloride Liquid) 20 meq DAILY PO 05/13/19 09:00 05/16/19 14:21 DC 05/16/19 08:28 Quetiapine Fumarate (SEROquel) 12.5 mg QHS PRN PO AGITATION 05/11/19 11:45 05/13/19 11:49 DC Rosuvastatin Calcium (Crestor) 10 mg QHS PO 05/11/19 21:00 05/17/19 21:07 Senna (Senokot) 1 tab QHS PO 05/11/19 21:00 05/17/19 21:07 Trazodone HCl (Desyrel) 25 mg Q6HP PRN PO AGITATION 05/11/19 11:45 05/18/19 14:49 DC Trazodone HCl (Desyrel) 25 mg QHS PO 05/11/19 21:00 05/18/19 14:49 DC 05/17/19 21:07 Trazodone HCl (Desyrel) 25 mg QHS PRN PO INSOMNIA 05/18/19 21:00 HECTOR YAO MD May 18, 2019 15:09
[2019-05-18 20:00] VITALS: BP 117/75
[2019-05-18] MEDS: ROSUVASTATIN 10 MG TAB (CRESTOR) PO SCH (20:42)
[2019-05-18] MEDS: SENNA 8.6 MG TAB (SENOKOT) PO SCH (20:42)
[2019-05-18] MEDS ORDERED: traZODone 25MG PER 1/2 TABLET PO PRN (21:00)
[2019-05-19 06:00] VITALS: BP 112/64
[2019-05-19] MEDS: DOCUSATE SODIUM 100 MG CAP PO SCH ×2 (08:33→21:52)
[2019-05-19] MEDS: PANTOPRAZOLE 40MG TAB (PROTONIX) PO SCH (08:33)
[2019-05-19] MEDS: BISACODYL 5 MG TAB PO SCH (08:33)
[2019-05-19] MEDS: OYSTER SHELL CALCIUM 500 MG TAB PO SCH ×3 (08:34→08:54)
[2019-05-19] MEDS: ACETAMINOPHEN 325 MG/10.15 ML UDC PO SCH ×3 (08:34→21:00)
[2019-05-19] MEDS: GABAPENTIN 100 MG CAP PO SCH (08:34)
[2019-05-19] MEDS: amLODIPine 10 MG TAB PO SCH (08:34)
[2019-05-19] MEDS: MECLIZINE 25 MG TABLET PO SCH ×3 (08:34→21:52)
--- NOTE | 2019-05-19 10:40 | IPNPDOC ---
Subjective Date Seen The patient was seen on 05/19/19. Subjective Chief Complaint/HPI Patient was seen in gym. She is been participating with physical therapy as per patient. Dizziness is less, but her double vision, still there. She years patch on her on one eye to prevent it. But as per patient, she is doing very well with physical therapy, no new medical complaints General: Denies: ROS Unobtainable, Chills, Night Sweats, Fatigue, Malaise, Normal Appetite, Other Symptoms Constitutional: Denies: Chills, Fever, Malaise, Night Sweats, Weakness, Fatigue, Weight Loss, Lethargy, Other Eyes: Reports: Other (, double vision) Skin: Denies: Rash, Lesions, Jaundice, Bruising, Itching, Dry, Breakdown, Nail Changes, Other Pulmonary: Denies: Dyspnea, Cough, Pleuritic Chest Pain, Other Symptoms Cardiovascular: Denies: Chest Pain, Palpitations, Orthopnea, Paroxysmal Noc. Dyspnea, Edema, Lt Headedness, Other Symptoms Hematologic: Denies: Bruising, Bleeding Excessively, Petecchia, Purpura, Enlarged Lymph Nodes, Other Hematologic Endocrine: Denies: Polydipsia, Polyphagia, Polyuria, Heat Intolerance, Cold Intolerance, Other Endocrine Sx Musculoskeletal: Denies: Neck Pain, Back Pain, Shoulder Pain, Arm Pain, Hand Pain, Leg Pain, Foot Pain, Joint Pain, Muscle Pain, Spasms, Other Symptoms Neurological: Reports: Other Symptoms Psych: Denies: Mood Normal, Anxiety, Depression, Memory Issues, Thoughts of Self Harm, Anger, Thoughts of Harming Other, Other Psych Objective Physical Examination General Exam: Positive: Alert, Cooperative Eye Exam: Positive: Other Eye Symptoms (, eye patch on her right eye, but on examination. No any physical finding noted bilaterally) Neck Exam: Positive: Supple Chest Exam: Positive: Clear to auscultation, Normal air movement Heart Exam: Positive: Rate Normal, Normal S1, Normal S2 Abdomen Exam: Positive: Normal bowel sounds, Soft Extremity Exam: Positive: Normal pulses Skin Exam: Positive: Nl turgor and temperature Assessment /Plan Problems (1) Trigeminal neuralgia of left side of face Status: Chronic Problem Text: Patient is 64 years old female with past history of trigeminal neuralgia received treatment underwent an elective left sided suboccipital craniectomy with decompression of this nerve on 04/22/19 with EVD placement at [facility]. Status post craniotomy secondary to complicated trigeminal neuralgia surgical treatment Patient is receiving physical therapy and ARU progressing very well Follow-up with [facility] neurology/neurosurgery once discharged from [facility] Continue all present meds (2) HTN (hypertension) Status: Chronic Problem Text: Under control Continue home meds Plan/VTE VTE Prophylaxis Ordered?: Yes VS, I&O, 24H, Fishbone Vital Signs/I&O Vital Signs Date Time Temp Pulse Resp B/P (MAP) Pulse Ox O2 Delivery O2 Flow Rate FiO2 05/19/19 08:34 70 112/64 05/19/19 06:00 97.8 18 97 I&O- Last 24 Hours up to 6 AM 05/19/19 06:00 Intake Total 1560 ml Balance 1560 ml Laboratory Data Microbiology Microbiology 05/18/19 Stool Occult Blood (SILVIA) - Final, Complete NIMA SUAREZ MD May 19, 2019 10:40
--- NOTE | 2019-05-19 12:37 | IPNPDOC ---
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 She is asking if she can taker her home Nexium for her indigestion stating the protonix does not help. REVIEW OF SYSTEMS: The following is a completed review of systems and has been reviewed. Review of systems otherwise unremarkable. PAIN: Patient self reports headache EYES: +double vision EARS, NOSE, & THROAT: No throat pain, +mild dysphagia CARDIOVASCULAR: Denies chest pain or palpitations PULMONARY: Denies shortness of breath GASTROINTESTINAL:Denies constipation/diarrhea. GENITOURINARY: denies dysuria MUSCULOSKELETAL: +arthritis NEUROLOGICAL:+ trigeminal neuralgia, +dizziness (intermittent) HEMATOLOGICAL: denies easy bruising SKIN: craniotomy incision PSYCHIATRIC: Unremarkable All other review of systems found to be negative. PHYSICAL EXAMINATION: VITAL SIGNS: Please see below. GENERAL: Pleasant and cooperative. No acute distress. HEENT: PERRL. Extraocular movements grossly intact. Clear conjunctiva. CARDIOVASCULAR: Regular rate and rhythm. No murmurs, rubs, or gallops LUNGS: Clear to auscultation bilaterally. No wheezes. No rhonchi ABDOMEN: Soft, nontender, nondistended. Positive bowel sounds. Normal active bowel sounds NEUROLOGICAL: Alert and oriented times three. Cranial nerves II through XII grossly intact except decreased sensation left V2-3. Sensation grossly intact (-) babinksi/clonus +dysmetria with finger to nose on the left (mild) EXTREMITIES: 5\5 strength bilateral upper extremities.5\5 strength right lower extremity. 5/5 strength in left lower extremity. SKIN: left fronto-parietal and occipital craniotomy incision,s c/d/i ASSESSMENT:64-year-old F with past medical history of trigeminal neuralgia who presents status post decompressive craniotomy with cerebellar edema requiring repeat craniotomy. 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 Neuro: h trigeminal neuralgia s/p decompression on 04/22/19 complicated by cerebellar edema with tonsillar herniation s/p decompression craniotomy 04/25/19 -c/u meclizine to 25mg TID for dizziness -continue decadron 2mg TID, patient ambulating well in therapy with intermittent mild lean to the left which she is able to correct with cueing -f/u with neurosurgeon pushed back to 05-25, ok to remove sutures while here -will need outpatient vision therapy, referral sent 3. Cardio: HTN c/u BP meds, medicine consulted to assist in management 4. Resp: encourage incentive spirometry, monitor for infection 5. : monitor PVRs 6. Pain: d/c gabapentin, will c/u fiorecet prn, Tylenol discontinued as patient having difficulty swallowing both the capsule and the liquid 7. DVT ppx: continue and teds 8. GI ppx: Protonix 9. Heme: drop in Hgb from 12 to 10.2 on admission now stable at 10.4, FOBT negative 9. Psych: patient with episodes of agitation at [facility], c/u trazodone qHS standing at night and prn for agitation-stable 10. Dispo: 05-24-19 to home, progressing towards goals Allergies Coded Allergies: No Known Allergies (Unverified , 02/23/18) Vital Signs Vital Signs Date Time Temp Pulse Resp B/P (MAP) Pulse Ox O2 Delivery O2 Flow Rate FiO2 05/19/19 08:34 70 112/64 05/19/19 06:00 97.8 18 97 Microbiology Microbiology 05/18/19 Stool Occult Blood (SILVIA) - Final, Complete Current Medications Current Medications Current Medications Medications (Trade) Dose Ordered Sig/Rufino Route PRN Reason Start Time Stop Time Status Last Admin Dose Admin Acetaminophen (Tylenol Suspension) 1,000 mg TID PO 05/15/19 21:00 05/19/19 08:34 Acetaminophen (Tylenol Tab) 650 mg Q4HP PRN PO MILD PAIN (PS 1-4) 05/11/19 11:30 05/11/19 12:48 DC Acetaminophen (Tylenol Tab) 1,000 mg TID PO 05/11/19 16:00 05/15/19 16:24 DC 05/15/19 15:23 Acetaminophen/ Butalbital/ Caffeine (Fioricet) 1 ea Q6HP PRN PO HEADACHE 05/12/19 16:00 Al Hydrox/Mg Hydrox/Simethicone (Mylanta) 30 ml Q4HP PRN PO INDIGESTION 05/18/19 14:00 05/18/19 14:09 Amlodipine Besylate (Norvasc) 5 mg DAILY PO 05/13/19 09:00 05/16/19 11:30 DC 05/16/19 08:29 Amlodipine Besylate (Norvasc) 10 mg DAILY PO 05/12/19 09:00 05/12/19 10:50 DC 05/12/19 09:42 Amlodipine Besylate (Norvasc) 10 mg DAILY PO 05/17/19 09:00 05/19/19 08:34 Bisacodyl (Dulcolax Suppository) [address] CONSTIPATION 05/11/19 11:30 Bisacodyl (Dulcolax Tab) 5 mg DAILY PO 05/13/19 13:00 05/19/19 08:33 Calcium Carbonate (Oscal) 500 mg DAILY PO 05/12/19 09:00 05/18/19 08:19 Dexamethasone (Decadron) 2 mg BID PO 05/20/19 09:00 Dexamethasone (Decadron) 2 mg TID PO 05/13/19 11:00 05/19/19 10:27 DC 05/19/19 08:34 Dexamethasone (Decadron) 2 mg TID PO 05/19/19 16:00 05/19/19 23:00 Docusate Sodium (Colace) 100 mg BID PO 05/11/19 21:00 05/19/19 08:33 Gabapentin (Neurontin) 100 mg BID PO 05/16/19 21:00 05/19/19 08:34 Gabapentin (Neurontin) 100 mg TID PO 05/11/19 16:00 05/16/19 11:30 DC 05/16/19 08:29 Heparin Sodium (Porcine) (Heparin) 5,000 units Q12H SC 05/11/19 21:00 05/16/19 11:26 DC 05/16/19 08:29 Home Med (Med Rec Complete!) ASDIRECTED XX 05/11/19 12:45 05/11/19 12:41 DC Meclizine HCl (Antivert) 12.5 mg TID PO 05/11/19 13:00 05/12/19 10:50 DC 05/12/19 09:42 Meclizine HCl (Antivert) 25 mg TID PO 05/12/19 16:00 05/19/19 08:34 Ondansetron HCl (Zofran Odt) 4 mg Q6HP PRN PO NAUSEA OR VOMITING 05/12/19 11:00 Pantoprazole Sodium (Protonix) 40 mg DAILY PO 05/12/19 09:00 05/19/19 08:33 Patient Own Medication (Patient'S Own Med) Nexium 40mg po daily, ... ASDIRECTED PO 05/19/19 10:30 UNV Potassium Chloride (Micro-K Extencaps) 20 meq DAILY PO 05/12/19 09:00 05/12/19 09:59 DC 05/12/19 09:41 Potassium Chloride (Potassium Chloride Liquid) 20 meq DAILY PO 05/13/19 09:00 05/16/19 14:21 DC 05/16/19 08:28 Quetiapine Fumarate (SEROquel) 12.5 mg QHS PRN PO AGITATION 05/11/19 11:45 05/13/19 11:49 DC Rosuvastatin Calcium (Crestor) 10 mg QHS PO 05/11/19 21:00 05/18/19 20:42 Senna (Senokot) 1 tab QHS PO 05/11/19 21:00 05/18/19 20:42 Trazodone HCl (Desyrel) 25 mg Q6HP PRN PO AGITATION 05/11/19 11:45 05/18/19 14:49 DC Trazodone HCl (Desyrel) 25 mg QHS PO 05/11/19 21:00 05/18/19 14:49 DC 05/17/19 21:07 Trazodone HCl (Desyrel) 25 mg QHS PRN PO INSOMNIA 05/18/19 21:00 05/18/19 20:42 HECTOR YAO MD May 19, 2019 12:36
[2019-05-19 14:00] VITALS: BP 124/68
[2019-05-19 21:00] VITALS: BP 121/62
[2019-05-19] MEDS: ROSUVASTATIN 10 MG TAB (CRESTOR) PO SCH (21:52)
[2019-05-19] MEDS: SENNA 8.6 MG TAB (SENOKOT) PO SCH (21:52)
[2019-05-20 06:15] VITALS: BP 132/92
[2019-05-20] MEDS: ACETAMINOPHEN 325 MG/10.15 ML UDC PO SCH ×3 (09:00→20:09)
[2019-05-20] MEDS: BISACODYL 5 MG TAB PO SCH (09:34)
[2019-05-20] MEDS: amLODIPine 10 MG TAB PO SCH (09:34)
[2019-05-20] MEDS: MECLIZINE 25 MG TABLET PO SCH ×3 (09:34→20:06)
[2019-05-20] MEDS: OYSTER SHELL CALCIUM 500 MG TAB PO SCH (09:34)
[2019-05-20] MEDS: PANTOPRAZOLE 40MG TAB (PROTONIX) PO SCH (09:34)
[2019-05-20] MEDS: DOCUSATE SODIUM 100 MG CAP PO SCH ×2 (09:34→20:06)
[2019-05-20 14:00] VITALS: BP 142/81
[2019-05-20 20:00] VITALS: BP_SYST 103; BP_SYST 136; BP_DIAS 63; BP_DIAS 78
[2019-05-20] MEDS: SENNA 8.6 MG TAB (SENOKOT) PO SCH (20:06)
[2019-05-20] MEDS: ROSUVASTATIN 10 MG TAB (CRESTOR) PO SCH (20:06)
[2019-05-21 04:00] VITALS: BP 145/67
[2019-05-21] MEDS: DOCUSATE SODIUM 100 MG CAP PO SCH ×2 (08:38→20:26)
[2019-05-21] MEDS: amLODIPine 10 MG TAB PO SCH (08:38)
[2019-05-21] MEDS: MECLIZINE 25 MG TABLET PO SCH ×3 (08:38→20:26)
[2019-05-21] MEDS: BISACODYL 5 MG TAB PO SCH (08:38)
[2019-05-21] MEDS: NEXIUM 40MG CAPSULE (PATIENT'S OWN MED) PO SCH (08:39)
[2019-05-21] MEDS: ACETAMINOPHEN 325 MG/10.15 ML UDC PO SCH ×3 (08:39→20:27)
[2019-05-21] MEDS: OYSTER SHELL CALCIUM 500 MG TAB PO SCH (08:39)
[2019-05-21 14:12] VITALS: BP 135/82
[2019-05-21 19:40] VITALS: BP 141/89
[2019-05-21] MEDS: ROSUVASTATIN 10 MG TAB (CRESTOR) PO SCH (20:27)
[2019-05-21] MEDS: SENNA 8.6 MG TAB (SENOKOT) PO SCH (20:29)
[2019-05-22 04:05] VITALS: BP 151/89
[2019-05-22] MEDS: OYSTER SHELL CALCIUM 500 MG TAB PO SCH (09:00)
[2019-05-22] MEDS: ACETAMINOPHEN 325 MG/10.15 ML UDC PO SCH ×3 (09:33→20:05)
[2019-05-22] MEDS: amLODIPine 10 MG TAB PO SCH (09:34)
[2019-05-22] MEDS: DOCUSATE SODIUM 100 MG CAP PO SCH ×2 (09:34→20:05)
[2019-05-22] MEDS: BISACODYL 5 MG TAB PO SCH (09:34)
[2019-05-22] MEDS: MECLIZINE 25 MG TABLET PO SCH ×3 (09:34→20:05)
[2019-05-22] MEDS: NEXIUM 40MG CAPSULE (PATIENT'S OWN MED) PO SCH (09:35)
[2019-05-22 14:00] VITALS: BP 140/88
[2019-05-22 19:54] VITALS: BP 117/65
[2019-05-22] MEDS: SENNA 8.6 MG TAB (SENOKOT) PO SCH (20:04)
[2019-05-22] MEDS: ROSUVASTATIN 10 MG TAB (CRESTOR) PO SCH (20:05)
[2019-05-23 05:27] VITALS: BP 144/85
[2019-05-23] MEDS: BISACODYL 5 MG TAB PO SCH (08:35)
[2019-05-23] MEDS: DOCUSATE SODIUM 100 MG CAP PO SCH ×2 (08:35→20:58)
[2019-05-23] MEDS: MECLIZINE 25 MG TABLET PO SCH ×3 (08:35→20:59)
[2019-05-23] MEDS: amLODIPine 10 MG TAB PO SCH (08:35)
[2019-05-23] MEDS: NEXIUM 40MG CAPSULE (PATIENT'S OWN MED) PO SCH (08:36)
[2019-05-23] MEDS: OYSTER SHELL CALCIUM 500 MG TAB PO SCH (08:36)
[2019-05-23] MEDS: ACETAMINOPHEN 325 MG/10.15 ML UDC PO SCH ×3 (08:36→20:59)
[2019-05-23 09:53] LABS: BASO % 0.1 % (0.0-1.0); EOS # 0.1 10^3/uL (0.0-0.5); EOS % 0.6 % (0.0-3.0); HEMATOCRIT 37.1 % (36.0-47.0); HEMOGLOBIN 12.3 g/dl (12.0-15.5); LYMPH # 2.6 10^3/uL (1.5-5.0); LYMPH % 28.5 % (24.0-44.0); MEAN CORPUSCULAR HEMOGLOBIN 29.5 pg (27.0-33.0); MEAN CORPUSCULAR HGB CONC 33.2 g/dl (32.0-36.5); MONO # 1.2 10^3/uL (0.0-0.8); MONO % 12.9 % (0.0-5.0); NEUTROPHILS # 5.1 10^3/uL (1.5-8.5); NEUTROPHILS % 56.4 % (36.0-66.0); PLATELET COUNT, AUTOMATED 377 10^3/uL (150-450); RED BLOOD COUNT 4.17 10^6/uL (4.00-5.40)
[2019-05-23 10:16] LABS: CREATININE FOR GFR 1.01 MG/DL (0.55-1.30); GLOMERULAR FILTRATION RATE 58.9 (>45)
--- NOTE | 2019-05-23 12:26 | IPNPDOC ---
Subjective Date Seen The patient was seen on 05/23/19. Subjective Chief Complaint/HPI Patient is comfortable lying in bed. at the bedside is scheduled for discharge tomorrow. Offers no new complaints General: Denies: ROS Unobtainable, Chills, Night Sweats, Fatigue, Malaise, Normal Appetite, Other Symptoms Constitutional: Denies: Chills, Fever, Malaise, Night Sweats, Weakness, Fatigue, Weight Loss, Lethargy, Other Eyes: Reports: Other (double vision) Pulmonary: Denies: Dyspnea, Cough, Pleuritic Chest Pain, Other Symptoms Cardiovascular: Denies: Chest Pain, Palpitations, Orthopnea, Paroxysmal Noc. Dyspnea, Edema, Lt Headedness, Other Symptoms Gastrointestinal: Denies: Nausea, Vomiting, Abdominal Pain, Diarrhea, Constipation, Melena, Hematochezia, Other Symptoms Musculoskeletal: Denies: Neck Pain, Back Pain, Shoulder Pain, Arm Pain, Hand Pain, Leg Pain, Foot Pain, Joint Pain, Muscle Pain, Spasms, Other Symptoms Psych: Reports: Mood Normal; Denies: Depression, Memory Issues Objective Physical Examination Eye Exam: Positive: Other Eye Symptoms (, eye patch on her right eye, but on examination. No any physical finding noted bilaterally) Neck Exam: Positive: Supple Chest Exam: Positive: Clear to auscultation, Normal air movement Heart Exam: Positive: Rate Normal, Normal S1, Normal S2 Abdomen Exam: Positive: Normal bowel sounds, Soft Extremity Exam: Positive: Normal pulses Skin Exam: Positive: Nl turgor and temperature Assessment /Plan Problems (1) Trigeminal neuralgia of left side of face Status: Chronic Problem Text: Patient is 64 years old female with past history of trigeminal neuralgia received treatment underwent an elective left sided suboccipital craniectomy with decompression of this nerve on 04/22/19 with EVD placement at [facility]. Status post craniotomy secondary to complicated trigeminal neuralgia surgical treatment Patient is completing her physical therapy and is a scheduled to be discharged home tomorrow She will follow with [facility] neurosurgery after discharge as an outpatient Continue all present medications (2) HTN (hypertension) Status: Chronic Problem Text: Under control Continue home meds Plan/VTE VTE Prophylaxis Ordered?: Yes VS, I&O, 24H, Fishbone Vital Signs/I&O Vital Signs Date Time Temp Pulse Resp B/P (MAP) Pulse Ox O2 Delivery O2 Flow Rate FiO2 10/7/19 08:35 71 144/85 05/23/19 05:27 97.5 18 96 I&O- Last 24 Hours up to 6 AM 05/23/19 06:00 Intake Total 1140 ml Balance 1140 ml Laboratory Data 24H LABS Laboratory Tests 2 05/23/19 09:28: Immature Granulocyte % (Auto) 1.5, White Blood Count 9.0, Red Blood Count 4.17, Hemoglobin 12.3, Hematocrit 37.1, Mean Corpuscular Volume 89.0, Mean Corpuscular Hemoglobin 29.5, Mean Corpuscular Hemoglobin Concent 33.2, Red Cell Distribution Width 14.7H, Platelet Count 377, Neutrophils (%) (Auto) 56.4, Lymphocytes (%) (Auto) 28.5, Monocytes (%) (Auto) 12.9H, Eosinophils (%) (Auto) 0.6, Basophils (%) (Auto) 0.1, Neutrophils # (Auto) 5.1, Lymphocytes # (Auto) 2.6, Monocytes # (Auto) 1.2H, Eosinophils # (Auto) 0.1, Basophils # (Auto) 0.0, Nucleated Red Blood Cells % (auto) 0.0, Anion Gap 9, Glomerular Filtration Rate 58.9, Blood Urea Nitrogen 20H, Creatinine 1.01, Sodium Level 137, Potassium Level 4.0, Chloride Level 103, Carbon Dioxide Level 25, Calcium Level 9.0 CBC/BMP Laboratory Tests 05/23/19 09:28 Red Blood Count 4.17, Mean Corpuscular Volume 89.0, Mean Corpuscular Hemoglobin 29.5, Mean Corpuscular Hemoglobin Concent 33.2, Red Cell Distribution Width 14.7 H, Neutrophils (%) (Auto) 56.4, Lymphocytes (%) (Auto) 28.5, Monocytes (%) (Auto) 12.9 H, Eosinophils (%) (Auto) 0.6, Basophils (%) (Auto) 0.1, Neutrophils # (Auto) 5.1, Lymphocytes # (Auto) 2.6, Monocytes # (Auto) 1.2 H, Eosinophils # (Auto) 0.1, Basophils # (Auto) 0.0, Calcium Level 9.0 Microbiology Microbiology 05/18/19 Stool Occult Blood (SILVIA) - Final, Complete NIMA SUAREZ MD May 23, 2019 12:26
[2019-05-23 14:00] VITALS: BP 121/75
[2019-05-23] MEDS ORDERED: AMLO10TA5 PO (14:43)
[2019-05-23] MEDS ORDERED: CRES10TA PO (14:43)
[2019-05-23] MEDS ORDERED: CALCI50TA PO (14:43)
[2019-05-23] MEDS ORDERED: DEXA2TA PO (14:43)
[2019-05-23] MEDS ORDERED: MECL-86 PO (14:43)
--- NOTE | 2019-05-23 17:50 | IPNPDOC ---
PM&R Progress Note DATE OF SERVICE: May 23, 2019 Cms Expert Progress Note Subjective: Patient seen in therapy stating her headaches are much better and her double vision is getting a little better as well. REVIEW OF SYSTEMS: The following is a completed review of systems and has been reviewed. Review of systems otherwise unremarkable. PAIN: Patient self reports headache EYES: +double vision EARS, NOSE, & THROAT: No throat pain, +mild dysphagia CARDIOVASCULAR: Denies chest pain or palpitations PULMONARY: Denies shortness of breath GASTROINTESTINAL:Denies constipation/diarrhea. GENITOURINARY: denies dysuria MUSCULOSKELETAL: +arthritis NEUROLOGICAL:+ trigeminal neuralgia, +dizziness (intermittent) HEMATOLOGICAL: denies easy bruising SKIN: craniotomy incision PSYCHIATRIC: Unremarkable All other review of systems found to be negative. PHYSICAL EXAMINATION: VITAL SIGNS: Please see below. GENERAL: Pleasant and cooperative. No acute distress. HEENT: PERRL. Extraocular movements grossly intact. Clear conjunctiva. CARDIOVASCULAR: Regular rate and rhythm. No murmurs, rubs, or gallops LUNGS: Clear to auscultation bilaterally. No wheezes. No rhonchi ABDOMEN: Soft, nontender, nondistended. Positive bowel sounds. Normal active bowel sounds NEUROLOGICAL: Alert and oriented times three. Cranial nerves II through XII grossly intact except decreased sensation left V2-3. Sensation grossly intact (-) babinksi/clonus +dysmetria with finger to nose on the left (mild) EXTREMITIES: 5\5 strength bilateral upper extremities.5\5 strength right lower extremity. 5/5 strength in left lower extremity. SKIN: left fronto-parietal and occipital craniotomy incision,s c/d/i ASSESSMENT:64-year-old F with past medical history of trigeminal neuralgia who presents status post decompressive craniotomy with cerebellar edema requiring repeat craniotomy. PLAN: 1.Rehab: PT- strengthen, stretch, maintain ROM bilat LE, advance gait training, dynamic balance, fall recovery-room privileges with OT- strengthen, stretch, maintain ROM bilat UE, ADLs [employer] RICE: evaluate for cognitive impairment and for dysphagia- c/u mechanical soft diet 2. Neuro: [facility] trigeminal neuralgia s/p decompression on 04/22/19 complicated by cerebellar edema with tonsillar herniation s/p decompression craniotomy 04/25/19 -c/u meclizine to 25mg TID for dizziness -continue decadron 2mg tapered to BID, patient ambulating well in therapy with improvement in her lean to the left -f/u with neurosurgeon pushed back to 05-25, sutures removed -will need outpatient vision therapy, referral sent 3. Cardio: HTN c/u BP meds, medicine consulted to assist in management 4. Resp: encourage incentive spirometry, monitor for infection 5. : monitor PVRs 6. Pain: headache improving overall -d/c'd gabapentin, will c/u fiorecet prn, Tylenol discontinued as patient having difficulty swallowing both the capsule and the liquid 7. DVT ppx: continue and teds 8. GI ppx: Protonix 9. Heme: drop in Hgb from 12 to 10.2 on admission now stable at 10.4, FOBT negative 9. Psych: patient with episodes of agitation at RHONDA, c/u trazodone qHS standing at night and prn for agitation-stable 10. Dispo: 05-24-19 to home, progressing towards goals Allergies Coded Allergies: No Known Allergies (Unverified , 02/23/18) Vital Signs Vital Signs Date Time Temp Pulse Resp B/P (MAP) Pulse Ox O2 Delivery O2 Flow Rate FiO2 05/23/19 14:00 97.6 91 18 121/75 (90) 96 Laboratory Data CBC/BMP Laboratory Tests 05/23/19 09:28 Red Blood Count 4.17, Mean Corpuscular Volume 89.0, Mean Corpuscular Hemoglobin 29.5, Mean Corpuscular Hemoglobin Concent 33.2, Red Cell Distribution Width 14.7 H, Neutrophils (%) (Auto) 56.4, Lymphocytes (%) (Auto) 28.5, Monocytes (%) (Auto) 12.9 H, Eosinophils (%) (Auto) 0.6, Basophils (%) (Auto) 0.1, Neutrophils # (Auto) 5.1, Lymphocytes # (Auto) 2.6, Monocytes # (Auto) 1.2 H, Eosinophils # (Auto) 0.1, Basophils # (Auto) 0.0, Calcium Level 9.0 Labs 24H Laboratory Tests 2 05/23/19 09:28: Immature Granulocyte % (Auto) 1.5, White Blood Count 9.0, Red Blood Count 4.17, Hemoglobin 12.3, Hematocrit 37.1, Mean Corpuscular Volume 89.0, Mean Corpuscular Hemoglobin 29.5, Mean Corpuscular Hemoglobin Concent 33.2, Red Cell Distribution Width 14.7H, Platelet Count 377, Neutrophils (%) (Auto) 56.4, Lymphocytes (%) (Auto) 28.5, Monocytes (%) (Auto) 12.9H, Eosinophils (%) (Auto) 0.6, Basophils (%) (Auto) 0.1, Neutrophils # (Auto) 5.1, Lymphocytes # (Auto) 2.6, Monocytes # (Auto) 1.2H, Eosinophils # (Auto) 0.1, Basophils # (Auto) 0.0, Nucleated Red Blood Cells % (auto) 0.0, Anion Gap 9, Glomerular Filtration Rate 58.9, Blood Urea Nitrogen 20H, Creatinine 1.01, Sodium Level 137, Potassium Level 4.0, Chloride Level 103, Carbon Dioxide Level 25, Calcium Level 9.0 Microbiology Microbiology 05/18/19 Stool Occult Blood (SILVIA) - Final, Complete Current Medications Current Medications Current Medications Medications (Trade) Dose Ordered Sig/Rufino Route PRN Reason Start Time Stop Time Status Last Admin Dose Admin Acetaminophen (Tylenol Suspension) 1,000 mg TID PO 05/15/19 21:00 05/23/19 15:33 Acetaminophen (Tylenol Tab) 650 mg Q4HP PRN PO MILD PAIN (PS 1-4) 05/11/19 11:30 05/11/19 12:48 DC Acetaminophen (Tylenol Tab) 1,000 mg TID PO 05/11/19 16:00 05/15/19 16:24 DC 05/15/19 15:23 Acetaminophen/ Butalbital/ Caffeine (Fioricet) 1 ea Q6HP PRN PO HEADACHE 05/12/19 16:00 05/20/19 15:09 Al Hydrox/Mg Hydrox/Simethicone (Mylanta) 30 ml Q4HP PRN PO INDIGESTION 05/18/19 14:00 05/18/19 14:09 Amlodipine Besylate (Norvasc) 5 mg DAILY PO 05/13/19 09:00 05/16/19 11:30 DC 05/16/19 08:29 Amlodipine Besylate (Norvasc) 10 mg DAILY PO 05/12/19 09:00 05/12/19 10:50 DC 05/12/19 09:42 Amlodipine Besylate (Norvasc) 10 mg DAILY PO 05/17/19 09:00 05/23/19 08:35 Bisacodyl (Dulcolax Suppository) 10 mg DAILYPRN PRN [place] CONSTIPATION 05/11/19 11:30 Bisacodyl (Dulcolax Tab) 5 mg DAILY PO 05/13/19 13:00 05/23/19 08:35 Calcium Carbonate (Oscal) 500 mg DAILY PO 05/12/19 09:00 05/20/19 09:34 Dexamethasone (Decadron) 2 mg BID PO 05/20/19 09:00 05/23/19 08:35 Dexamethasone (Decadron) 2 mg TID PO 05/13/19 11:00 05/19/19 10:27 DC 05/19/19 08:34 Dexamethasone (Decadron) 2 mg TID PO 05/19/19 16:00 05/19/19 23:00 DC 05/19/19 21:52 Docusate Sodium (Colace) 100 mg BID PO 05/11/19 21:00 05/23/19 08:35 Gabapentin (Neurontin) 100 mg BID PO 05/16/19 21:00 05/19/19 12:35 DC 05/19/19 08:34 Gabapentin (Neurontin) 100 mg TID PO 05/11/19 16:00 05/16/19 11:30 DC 05/16/19 08:29 Heparin Sodium (Porcine) (Heparin) 5,000 units Q12H SC 05/11/19 21:00 05/16/19 11:26 DC 05/16/19 08:29 Home Med (Med Rec Complete!) ASDIRECTED XX 05/11/19 12:45 05/11/19 12:41 DC Meclizine HCl (Antivert) 12.5 mg TID PO 05/11/19 13:00 05/12/19 10:50 DC 05/12/19 09:42 Meclizine HCl (Antivert) 25 mg TID PO 05/12/19 16:00 05/23/19 15:33 Miscellaneous (Unresolved Patient Own Med Order) SEE LABEL COMMENTS DAILY XX 05/20/19 09:00 05/20/19 14:19 DC Ondansetron HCl (Zofran Odt) 4 mg Q6HP PRN PO NAUSEA OR VOMITING 05/12/19 11:00 Pantoprazole Sodium (Protonix) 40 mg DAILY PO 05/12/19 09:00 05/20/19 14:16 DC 05/20/19 09:34 Patient Own Medication (Patient'S Own Med) Nexium 40mg po daily DAILY PO 05/21/19 09:00 05/23/19 08:36 Potassium Chloride (Micro-K Extencaps) 20 meq DAILY PO 05/12/19 09:00 05/12/19 09:59 DC 05/12/19 09:41 Potassium Chloride (Potassium Chloride Liquid) 20 meq DAILY PO 05/13/19 09:00 05/16/19 14:21 DC 05/16/19 08:28 Quetiapine Fumarate (SEROquel) 12.5 mg QHS PRN PO AGITATION 05/11/19 11:45 05/13/19 11:49 DC Rosuvastatin Calcium (Crestor) 10 mg QHS PO 05/11/19 21:00 05/22/19 20:05 Senna (Senokot) 1 tab QHS PO 05/11/19 21:00 05/20/19 20:06 Trazodone HCl (Desyrel) 25 mg Q6HP PRN PO AGITATION 05/11/19 11:45 05/18/19 14:49 DC Trazodone HCl (Desyrel) 25 mg QHS PO 05/11/19 21:00 05/18/19 14:49 DC 05/17/19 21:07 Trazodone HCl (Desyrel) 25 mg QHS PRN PO INSOMNIA 05/18/19 21:00 05/19/19 12:35 DC 05/18/19 20:42 HECTOR YAO MD May 23, 2019 17:50
[2019-05-23 20:00] VITALS: BP 127/71
[2019-05-23] MEDS: ROSUVASTATIN 10 MG TAB (CRESTOR) PO SCH (20:58)
[2019-05-23] MEDS: SENNA 8.6 MG TAB (SENOKOT) PO SCH (20:58)
[2019-05-24 06:00] VITALS: BP 117/72
[2019-05-24] MEDS: NEXIUM 40MG CAPSULE (PATIENT'S OWN MED) PO SCH (08:39)
[2019-05-24 08:40] VITALS: BP 117/72
[2019-05-24] MEDS: BISACODYL 5 MG TAB PO SCH (08:40)
[2019-05-24] MEDS: amLODIPine 10 MG TAB PO SCH (08:40)
[2019-05-24] MEDS: MECLIZINE 25 MG TABLET PO SCH (08:40)
[2019-05-24] MEDS: OYSTER SHELL CALCIUM 500 MG TAB PO SCH (08:40)
[2019-05-24] MEDS: DOCUSATE SODIUM 100 MG CAP PO SCH (08:40)
[2019-05-24] MEDS: ACETAMINOPHEN 325 MG/10.15 ML UDC PO SCH (08:41)
== END 2019-05-24 13:30 | disposition home or self-care (01) | DRG 74 ==
LOC: M PM&R 10:45
PROVIDERS: ADMIT Physical Medicine & Rehabilitation; ATTEND Physical Medicine & Rehabilitation
DX: G50.0 Trigeminal neuralgia (principal); K21.9 Gastro-esophageal reflux disease without esophagitis; Z79.899 Other long term (current) drug therapy; I10 Essential (primary) hypertension; M43.02 Spondylolysis, cervical region; M43.06 Spondylolysis, lumbar region

== ENCOUNTER → 2019-12-27 | Outpatient (REF) | payer OTHER ==
[~2019-12-27] MED LIST changes: +ACET-907 PO; +AMLO10TA5 PO; +BISA10SU4 PR; +CALCI50TA PO; +CRES10TA PO; +DEXA2TA PO; +HEPA500011 SC; +MECL-86 PO; +MELA3TAB62 PO; +MIRA3350 PO; +MOM30SS PO; +OYST500T91 PO; +PANT-23 PO; +POTA20TA6 PO; +QUET1TAB7 PO; +SENN8.6T28 PO
[2019-12-27 10:39] LABS: HEMATOCRIT 39.1 % (36.0-47.0); HEMOGLOBIN 13.1 g/dl (12.0-15.5); MEAN CORPUSCULAR HEMOGLOBIN 27.9 pg (27.0-33.0); MEAN CORPUSCULAR HGB CONC 33.5 g/dl (32.0-36.5); MEAN CORPUSCULAR VOLUME 83.4 fl (80.0-96.0); PLATELET COUNT, AUTOMATED 283 10^3/uL (150-450); RED BLOOD COUNT 4.69 10^6/uL (4.00-5.40); WHITE BLOOD COUNT 6.1 10^3/uL (4.0-10.0)
[2019-12-27 11:11] LABS: ALT/SGPT 37 U/L (12-78); BILIRUBIN,TOTAL 0.9 MG/DL (0.2-1.0); BLOOD UREA NITROGEN 10 MG/DL (7-18); CARBON DIOXIDE LEVEL 32 MEQ/L (21-32); CHLORIDE LEVEL 103 MEQ/L (98-107); CHOLESTEROL LEVEL 170 MG/DL (<200); CHOLESTEROL RISK RATIO 3.148 (<5); CREATININE FOR GFR 0.89 MG/DL (0.55-1.30); GLOMERULAR FILTRATION RATE > 60.0 (>45); GLUCOSE, FASTING 101 MG/DL (70-100); HDL CHOLESTEROL 54 MG/DL (>40); LDL CHOLESTEROL 74 MG/DL (<100); NON-HDL-C 116 MG/DL; POTASSIUM SERUM 3.1 MEQ/L (3.5-5.1); SODIUM LEVEL 142 MEQ/L (136-145); TOTAL PROTEIN 7.1 GM/DL (6.4-8.2); TRIGLYCERIDES LEVEL 210 MG/DL (<150)
== END ==
LOC: M SFHCPLAZ 08:01
PROVIDERS: ATTEND Internal Medicine
DX: K21.9 Gastro-esophageal reflux disease without esophagitis (principal); E78.00 Pure hypercholesterolemia, unspecified

== ENCOUNTER → 2020-01-17 | Outpatient (CLI) | payer OTHER ==
--- NOTE | 2020-01-18 04:19 | REP ---
Clinical: Follow-up solitary pulmonary nodule. Technique: Axial noncontrast images from the thoracic inlet to the upper abdomen with coronal and sagittal re-formations. Comparison: 09/13/2018. Findings: The previously noted 1.6 cm round lesion in the perihilar left upper lobe now has a multinodular appearance measuring 4.0 x 2.5 x 2.5 cm maximal diameter and is again concerning for benign versus malignant neoplasm. Differential diagnosis less likely including arteriovenous malformation. Remainder of lung alba are relatively well aerated and stable. No new consolidation or satellite lesions are identified. No effusion. No pneumothorax. Tracheobronchial tree is patent. No obvious adenopathy identified. The mediastinum demonstrates atherosclerotic changes to the thoracic aorta and coronary arteries without aortic aneurysm or cardiomegaly. No pericardial effusion. Musculoskeletal structures demonstrate age-related changes. Impression: 1. Left upper lobe multinodular mass lesion has increased in size from prior examination. Differential diagnosis includes but is not limited to benign versus malignant neoplasm and less likely arteriovenous malformation. 2. No further abnormalities are identified. No adenopathy. No effusion. Electronically Signed by Antonio Molina MD 01/18/2020 04:11 A
== END ==
LOC: M RAD 07:58
PROVIDERS: ATTEND Internal Medicine Pulmonary Disease
DX: R91.1 Solitary pulmonary nodule (principal); I70.0 Atherosclerosis of aorta; I25.10 Atherosclerotic heart disease of native coronary artery without angina pectoris

== ENCOUNTER → 2020-01-24 | Outpatient (CLI) | payer OTHER ==
[~2020-01-24] MED LIST changes: +BUSP10TA PO; +NEXI20CA PO
[2020-01-24 14:01] LABS: PLATELET COUNT, AUTOMATED 340 10^3/uL (150-450)
[2020-01-24 14:04] LABS: INR 0.94; PROTHROMBIN TIME 12.3 SECONDS (11.8-14.0)
[2020-01-24 14:05] LABS: PARTIAL THROMBOPLASTIN TIME 26.4 SECONDS (25.0-38.4)
[2020-01-28 07:19] LABS: ANGIOTENSIN 1 CONVERTING ENZYM 32 U/L (14-82); ASPERGILLUS FLAVUS ABY Negative (Neg:<1:1); ASPERGILLUS FUMIGATUS ABY Negative (Neg:<1:1); ASPERGILLUS NIGER ABY Negative (Neg:<1:1); BLASTOMYCES ANTIBODY LEVEL Negative (Neg:<1:1); CRYPTOCOCCUS ANTIGEN SER Negative (Negative); HISTOPLASMOSIS ANTIBODY Negative (Neg:<1:1)
== END ==
LOC: M PLALAB 11:39
PROVIDERS: ATTEND Internal Medicine Pulmonary Disease
DX: R91.1 Solitary pulmonary nodule (principal)

== ENCOUNTER → 2020-02-04 | Outpatient (CLI) | payer OTHER | LOC: M LABSMTC 09:56 | PROVIDERS: ATTEND Anesthesiology | DX: Z11.59 Encounter for screening for other viral diseases (principal) | CPT/HCPCS: C9803; U0003 ==

== ENCOUNTER 2020-02-07 05:55 | Day surgery (SDC) | payer OTHER ==
[~2020-02-07] VITALS: Ht 172.7 cm; Wt 87.5 kg
[~2020-02-07 05:55] MED LIST changes: -AMLO10TA5 PO; +AMLO1TAB25 PO; +MELA3TAB30 PO; -MELA3TAB62 PO; -QUET1TAB7 PO; +QUET25TA3 PO
[2020-02-07] MEDS ORDERED: LR 1,000 ML IV ONE (07:00)
[2020-02-07] MEDS ORDERED: THROMBIN SOLN 5,000 UNITS VIAL As Ordered ONE (07:10)
[2020-02-07] MEDS ORDERED: EPINEPHrine 1MG/10ML SYRINGE 1.5IN As Ordered ONE (07:10)
[2020-02-07] MEDS ORDERED: CETACAINE SPRAY 5GM As Ordered ONE (07:10)
[2020-02-07] MEDS ORDERED: LIDOCAINE 1% SDV 30ML VIAL As Ordered ONE (07:11)
[2020-02-07] MEDS ORDERED: LIDOCAINE VISCOUS 2% SOLN 15ML UDC As Ordered ONE (07:11)
[2020-02-07] MEDS ORDERED: propofoL 200 MG/20 ML VIAL As Ordered ONE ×2 (07:18→07:50)
[2020-02-07] MEDS ORDERED: ROCURONIUM BROMIDE 50 MG/5 ML VIAL As Ordered ONE (07:18)
[2020-02-07] MEDS ORDERED: LIDOCAINE 2% 100MG/5ML SDV (FOR ANES.) As Ordered ONE (07:18)
[2020-02-07] MEDS ORDERED: ONDANSETRON 4MG/2ML VIAL As Ordered ONE (07:19)
[2020-02-07] MEDS ORDERED: MIDAZOLAM INJ 2MG/2ML VIAL (J2250 PER 1MG) As Ordered ONE (07:19)
[2020-02-07] MEDS ORDERED: fentaNYL 100 MCG/2 ML INJECTION (J3010) As Ordered ONE (07:19)
[2020-02-07] MEDS ORDERED: dexameTHASONE 4 MG/ML 1ML VIAL (J1100 PER 1MG) As Ordered ONE (07:19)
[2020-02-07] MEDS ORDERED: PHENYLephrine 500MCG 5ML (100MCG/ML) SYRINGE As Ordered ONE (08:00)
[2020-02-07] MEDS ORDERED: ACETAMINOPHEN 1000MG 100ML IV BTL (OFIRMEV) (J0131 PER 10MG) As Ordered ONE (08:05)
[2020-02-07] MEDS ORDERED: SUGAMMADEX SODIUM 500 MG/5 ML VIAL (BRIDION) As Ordered ONE (08:07)
[2020-02-07] MEDS ORDERED: fentaNYL 100 MCG/2 ML INJECTION (J3010) IV PRN (09:00)
[2020-02-07] MEDS ORDERED: METOCLOPRAMIDE INJ 10MG/2ML VIAL (J2765 PER 1) IV PRN (09:00)
[2020-02-07] MEDS ORDERED: ONDANSETRON 4MG/2ML VIAL IV PRN (09:00)
[2020-02-07] MEDS ORDERED: PERCOCET 5MG/325MG TAB PO PRN (09:00)
[2020-02-07] MEDS ORDERED: MEPERIDINE INJ 25 MG/ML VIAL (J2175) IV PRN (09:00)
[2020-02-07] MEDS ORDERED: LR 1,000 ML IV SCH (09:00)
--- NOTE | 2020-02-07 09:13 | REP ---
Portable chest x-ray: Single view. History: Postop. Comparison study August 23, 2018. Findings: There is ill-defined ankle opacification surrounding the nodular opacity in the left perihilar region consistent with localized parenchymal hemorrhage. There is no evidence of pneumothorax. There are some increased markings in the left base as well which may be discoid atelectasis. No other infiltrate. Pleural angles are sharp. Heart is not enlarged. Impression: Localized parenchymal opacification in the left upper lobe perihilar region consistent with a small parenchymal hemorrhage. No pneumothorax seen. Discoid atelectasis suspected left base. Electronically Signed by Joao Johnson MD 02/07/2020 09:05 A
[2020-02-07 10:02] LABS: SOURCE LEFT UPPER LOBE
[2020-02-07 10:03] LABS: APPEARANCE TURBID (CLEAR); COLOR RED (COLORLESS)
[2020-02-07 10:07] VITALS: BP 104/64
--- NOTE | 2020-02-07 13:46 | ROOR ---
Patient Name: Amy Wheatley Procedure Date: 02/07/2020 7:19 AM Date of : 1955 Admit Type: Outpatient Age: 65 Room: Main OR Note Status: Finalized Attending MD: Modesta Irby MD Procedure: Bronchoscopy Indications: Left upper lobe mass Providers: Modesta Irby MD (Doctor) Referring MD: 1. No Referring Physician 1. No Referring Physician, Admin. (Referring MD) Requesting Physician: Medicines: General Anesthesia, Cetacaine topical Complications: No immediate complications. Estimated blood loss: Minimal Procedure: Pre-Anesthesia Assessment: - Prior to the procedure, a History and Physical was performed, and patient medications and allergies were reviewed. The patient's tolerance of previous anesthesia was also reviewed. The risks and benefits of the procedure and the sedation options and risks were discussed with the patient. All questions were answered, and informed consent was obtained. Prior Anticoagulants: The patient has taken no previous anticoagulant or antiplatelet agents. ASA Grade Assessment: II - A patient with mild systemic disease. After reviewing the risks and benefits, the patient was deemed in satisfactory condition to undergo the procedure. The Bronchoscope [id number] #[id number] was introduced through the mouth, via the endotracheal tube (the patient was intubated for the procedure) and advanced to the tracheobronchial tree of both lungs. The procedure was accomplished without difficulty. The patient tolerated the procedure well. Findings: The endotracheal tube is in good position. The trachea is of normal caliber. The terry is sharp. The tracheobronchial tree was examined to at least the first subsegmental level. Bronchial mucosa showed some pitting and webbing. Bronchial anatomy was normal; there were no endobronchial lesions. There were scant white secretions. Electromagnetic navigation bronchoscopy utilizing the Sentrix system with iLogic upgrade was performed. The CT scan was used for planning purposes. A virtual bronchoscopic image was generated using the planning software and the terry, left main bronchus terry, left lower lobe basilar segment, right upper lobe, right middle lobe and right lower lobe basilar segment registration points were marked on the virtual image. The target in the apical-posterior segment of the left upper lobe was marked. A mass 4 cm in size was found and a pathway was created. After a complete airway exam, the locatable guide/extended working channel was inserted and an automatic registration was performed by advancing the scope through the terry, left main bronchus terry, left lower lobe basilar segment, right upper lobe, right middle lobe and right lower lobe basilar segment. The navigation phase was then begun to locate the target lesion(s). Positioning centrally (in relation to the lesion) was confirmed using the Olympus radial probe US catheter. The locatable guide was removed from the extended working channel. Fluoroscopy guided transbronchial brushings of a mass were obtained in the apical-posterior segment of the left upper lobe with a needle brush and sent for routine cytology. Transbronchial brushing technique was selected because the sampling site was not visible endoscopically. Transbronchial needle aspirations of a mass were performed in the apical-posterior segment of the left upper lobe using a fine needle and sent for routine cytology. The procedure was guided by fluoroscopy. Transbronchial needle aspiration technique was selected because the sampling site was not visible endoscopically. Transbronchial biopsies of a mass were performed in the apical-posterior segment of the left upper lobe using forceps and sent for histopathology examination. The procedure was guided by fluoroscopy. Transbronchial biopsy technique was selected because the sampling site was not visible endoscopically. Bronchoalveolar lavage was performed in the LISSET apical posterior segments (B1 & B2) of the lung and sent for cell count, bacterial culture, viral smears & culture, and fungal & AFB analysis and cytology. The return was bloody. Impression: - Left upper lobe mass - The airway examination was normal. - Electromagnetic navigation bronchoscopy was performed. - Transbronchial brushings were obtained. - A transbronchial needle aspiration was performed. - Transbronchial lung biopsies were performed. - Bronchoalveolar lavage was performed. Recommendation: - Await test results. Attending Participation: I personally performed the entire procedure. Modesta Irby MD 02/07/2020 1:46:12 PM Number of Addenda: 0 Note Initiated On: 02/07/2020 7:19 AM
[2020-02-08 13:58] LABS: MONOCYTES/MACROPHAGES, BAL 5 %
== END 2020-02-07 10:20 | disposition home or self-care (01) ==
LOC: M SDC 05:55
PROVIDERS: ATTEND Internal Medicine Pulmonary Disease
DX: R91.8 Other nonspecific abnormal finding of lung field (principal); I10 Essential (primary) hypertension; E78.00 Pure hypercholesterolemia, unspecified; K21.9 Gastro-esophageal reflux disease without esophagitis; F32.9 Major depressive disorder, single episode, unspecified; L40.8 Other psoriasis; Z79.899 Other long term (current) drug therapy
CPT/HCPCS: 31623; 31624; 31627; 31628; 31629; 71045; 76000; 87070; 87102; 87116; 87205; 87206; 88104; 88108; 88173; 88305; 88313; 89051; J0131; J1100; J2250; J2370; J2405; J3010

== ENCOUNTER → 2020-03-07 | Outpatient (CLI) | payer OTHER ==
[~2020-03-07] MED LIST changes: +QUET1TAB7 PO; -QUET25TA3 PO
[2020-03-07 13:47] LABS: ALBUMIN 3.6 GM/DL (3.2-5.2); BILIRUBIN,TOTAL 0.6 MG/DL (0.2-1.0); CALCIUM LEVEL 8.9 MG/DL (8.8-10.2); CREATININE FOR GFR 1.16 MG/DL (0.55-1.30); GLOMERULAR FILTRATION RATE 50.1 (>45); POTASSIUM SERUM 3.1 MEQ/L (3.5-5.1); TOTAL PROTEIN 6.8 GM/DL (6.4-8.2)
== END ==
LOC: M PLALAB 10:33
PROVIDERS: ATTEND Internal Medicine Pulmonary Disease
DX: R91.1 Solitary pulmonary nodule (principal)

== ENCOUNTER → 2020-03-28 | Outpatient (CLI) | payer OTHER ==
--- NOTE | 2020-05-07 10:20 | REP ---
CT CHEST WITHOUT CONTRAST HISTORY: Solitary pulmonary nodule. COMPARISON: Chest CT study 01/17/2020 and 09/13/2018. CT FINDINGS: The previously noted left upper lobe peribronchial pulmonary nodule is again seen 2.0 cm in greatest diameter x 1.4 cm x 1.4 cm. In August 2018, this measured 1.7 cm in greatest diameter. On todays CT study, there is some postobstructive plate-like atelectasis peripheral to the nodule. Coronal multiplanar reformation images demonstrate a segmental bronchial narrowing associated with the lesion. There is a tiny 3 mm nodule in the left lower lobe on page 66 of 116 in series 201 of todays study. This is somewhat less prominent than on the 09/13/2018 study. It is unchanged from 01/17/2020. There are one or two scattered tiny nodules in the lower lobes. There is a granulomatous calcification in the right upper lobe along the minor fissure. No hilar or mediastinal mass or adenopathy is seen. No pleural or pericardial effusion is observed. Minimal vascular calcification is seen. There is a stable left lobe hepatic cyst 4.3 cm in greatest diameter. IMPRESSION: A 2 cm nodule left upper lobe with postobstructive atelectasis. MTDD
== END ==
LOC: M RAD 07:33
PROVIDERS: ATTEND Internal Medicine Pulmonary Disease
DX: R91.1 Solitary pulmonary nodule (principal)

== ENCOUNTER → 2020-06-25 | Outpatient (CLI) | payer OTHER ==
--- NOTE | 2020-06-25 16:22 | REP ---
INDICATION: DIAGNOSING LUNG NODULE R91.1. History of left trigeminal neuralgia surgery with a complications requiring surgical follow-up. COMPARISON: Comparison PET-CT study October 05, 2018.. TECHNIQUE: Fifty-nine minutes following the intravenous injection of a 8.40 mCi dose of F-18 FDG, three-dimensional PET scintigraphy is acquired from the skull base to the proximal thighs. Triplanar noncontrast CT scanning is acquired through the same anatomic range for attenuation correction, and image registration with scan parameters optimized to minimize radiation exposure to the patient. PET scintigraphy and CT datasets were fused and displayed on a workstation with multiplanar and projection display capability. FINDINGS: In the interval since the prior PET-CT, the patient has undergone left occipital craniotomy. There is a left suboccipital subgaleal fluid collection associated with prior surgery but no hypermetabolic uptake is seen here or elsewhere in the skull base. Head and neck soft tissues are otherwise unremarkable. The 2 cm nodule previously identified in the left upper lobe shows mildly hypermetabolic uptake today. Maximum standard uptake value is 2.97. Previously 1.9. The parenchymal density lateral to this felt to be a postobstructive atelectasis is not hypermetabolic. Maximum standard uptake value here is 1.38. The tiny nodule in the left lower lobe is not hypermetabolic. No other abnormal hypermetabolic uptake is seen in the chest. No hilar or mediastinal mass or adenopathy is observed. In the abdomen and pelvis, there is normal hepatic, splenic, gastrointestinal, and genitourinary FDG accumulation. There is sigmoid colon diverticulosis. No abnormal hypermetabolic uptake is seen in the abdomen or pelvis. Normal adrenal gland uptake is observed. IMPRESSION: The 2 cm left upper lobe nodule shows mildly hypermetabolic uptake today, maximum SUV value 2.97. Malignancy not excluded. No other abnormal hypermetabolic uptake is seen. Interval left occipital craniotomy . <Electronically signed by Goran Johnson > 06/25/20 [id number]
== END ==
LOC: M PLARAD 06-19 07:25
PROVIDERS: ATTEND Internal Medicine Pulmonary Disease
DX: R91.1 Solitary pulmonary nodule (principal)
CPT/HCPCS: 78815; A9552

== ENCOUNTER → 2020-07-23 | Outpatient (REF) | payer OTHER ==
[2020-07-23 16:18] LABS: BILIRUBIN,TOTAL 0.9 MG/DL (0.2-1.0); CALCIUM LEVEL 8.9 MG/DL (8.8-10.2); CHOLESTEROL RISK RATIO 3.09 (<5); CREATININE FOR GFR 1.16 MG/DL (0.55-1.30); GLOMERULAR FILTRATION RATE 50.1 (>45); MAGNESIUM LEVEL 1.6 MG/DL (1.8-2.4); POTASSIUM SERUM 3.4 MEQ/L (3.5-5.1); TOTAL PROTEIN 7.2 GM/DL (6.4-8.2)
== END ==
LOC: M SFHCPLAZ 11:09
PROVIDERS: ATTEND Internal Medicine
DX: E87.6 Hypokalemia (principal); E78.00 Pure hypercholesterolemia, unspecified

== ENCOUNTER → 2020-12-27 | Outpatient (CLI) | payer OTHER ==
[~2020-12-27] MED LIST changes: -QUET1TAB7 PO; +QUET25TA3 PO
--- NOTE | 2020-12-28 02:35 | REP ---
INDICATION: SOLITARY PULMONARY NODULE COMPARISON: 03/28/2020 TECHNIQUE: Axial noncontrast images from the thoracic inlet to the upper abdomen with coronal and sagittal reformations. This CT examination was performed using the following dose reduction techniques: Automated exposure control, adjustment of mA and/or kv according to the patient's size, and use of iterative reconstruction technique. FINDINGS: The 2 cm left upper lobe mass with adjacent atelectasis is relatively unchanged. Remainder of lung alba are well aerated and clear. Few small scattered 2-3 mm nodules remain stable and consistent with granulomatous changes. No acute consolidation, pleural effusion, or pneumothorax. Tracheobronchial tree is patent. Mediastinum demonstrates stable normal thoracic aorta and heart/pericardium. No obvious adenopathy. Surrounding musculoskeletal structures are intact. Left hepatic cyst unchanged. Normal bilateral adrenal glands noted. IMPRESSION: 1. Stable 2 cm left upper lobe mass with minimal adjacent atelectasis unchanged. Lesion was indeterminate by PET-CT. Six-month follow-up and/or biopsy should be considered. <Electronically signed by Antonio Molina > 12/28/20 [id number]
== END ==
LOC: M RAD 08:46
PROVIDERS: ATTEND Internal Medicine Pulmonary Disease
DX: R91.1 Solitary pulmonary nodule (principal)

== ENCOUNTER → 2021-01-04 | Outpatient (REF) | payer OTHER ==
[2021-01-04 13:34] LABS: BASO # 0.1 10^3/uL (0.0-0.2); BASO % 0.8 % (0.0-1.0); EOS # 0.3 10^3/uL (0.0-0.5); EOS % 4.5 % (0.0-3.0); HEMATOCRIT 36.7 % (36.0-47.0); HEMOGLOBIN 12.5 g/dl (12.0-15.5); LYMPH # 1.9 10^3/uL (1.5-5.0); LYMPH % 29.8 % (24.0-44.0); MEAN CORPUSCULAR HEMOGLOBIN 29.1 pg (27.0-33.0); MEAN CORPUSCULAR HGB CONC 34.1 g/dl (32.0-36.5); MEAN CORPUSCULAR VOLUME 85.3 fl (80.0-96.0); MONO # 0.6 10^3/uL (0.0-0.8); MONO % 10.2 % (2.0-8.0); NEUTROPHILS # 3.4 10^3/uL (1.5-8.5); NEUTROPHILS % 54.4 % (36.0-66.0); PLATELET COUNT, AUTOMATED 309 10^3/uL (150-450); WHITE BLOOD COUNT 6.2 10^3/uL (4.0-10.0)
[2021-01-04 13:46] LABS: INR 0.88; PROTHROMBIN TIME 12.1 SECONDS (12.5-14.3)
[2021-01-04 13:47] LABS: PARTIAL THROMBOPLASTIN TIME 26.9 SECONDS (24.2-38.5)
[2021-01-04 14:01] LABS: BLOOD UREA NITROGEN 20 MG/DL (7-18); CALCIUM LEVEL 9.3 MG/DL (8.8-10.2); CARBON DIOXIDE LEVEL 30 MEQ/L (21-32); CHLORIDE LEVEL 100 MEQ/L (98-107); CREATININE FOR GFR 0.95 MG/DL (0.55-1.30); GLOMERULAR FILTRATION RATE > 60.0 (>45); GLUCOSE, FASTING 99 MG/DL (70-100); POTASSIUM SERUM 3.4 MEQ/L (3.5-5.1); SODIUM LEVEL 139 MEQ/L (136-145)
== END ==
LOC: M LAB REF 12:49
PROVIDERS: ATTEND Internal Medicine Pulmonary Disease
DX: R91.1 Solitary pulmonary nodule (principal)

== ENCOUNTER → 2021-01-18 | Outpatient (REF) | payer MEDICARE, OTHER ==
[~2021-01-18] MED LIST changes: +AMLO2.5T3 PO; +TORS10TA3 PO
[2021-01-18 10:17] LABS: BASO # 0.1 10^3/uL (0.0-0.2); BASO % 0.8 % (0.0-1.0); EOS # 0.3 10^3/uL (0.0-0.5); EOS % 5.3 % (0.0-3.0); HEMATOCRIT 38.2 % (36.0-47.0); HEMOGLOBIN 13.1 g/dl (12.0-15.5); LYMPH # 1.8 10^3/uL (1.5-5.0); MEAN CORPUSCULAR HEMOGLOBIN 29.5 pg (27.0-33.0); MEAN CORPUSCULAR HGB CONC 34.3 g/dl (32.0-36.5); MONO # 0.5 10^3/uL (0.0-0.8); MONO % 8.5 % (2.0-8.0); NEUTROPHILS # 3.3 10^3/uL (1.5-8.5); NEUTROPHILS % 55.2 % (36.0-66.0); PLATELET COUNT, AUTOMATED 244 10^3/uL (150-450); RED BLOOD COUNT 4.44 10^6/uL (4.00-5.40)
[2021-01-18 10:53] LABS: ALBUMIN 3.9 GM/DL (3.2-5.2); ALT/SGPT 32 U/L (12-78); BILIRUBIN,TOTAL 0.9 MG/DL (0.2-1.0); BLOOD UREA NITROGEN 20 MG/DL (7-18); CALCIUM LEVEL 9.3 MG/DL (8.8-10.2); CARBON DIOXIDE LEVEL 33 MEQ/L (21-32); CHLORIDE LEVEL 100 MEQ/L (98-107); CHOLESTEROL LEVEL 233 MG/DL (<200); CHOLESTEROL RISK RATIO 3.106 (<5); CREATININE FOR GFR 0.88 MG/DL (0.55-1.30); GLOMERULAR FILTRATION RATE > 60.0 (>45); GLUCOSE, FASTING 108 MG/DL (70-100); HDL CHOLESTEROL 75 MG/DL (>40); LDL CHOLESTEROL 104 MG/DL (<100); MAGNESIUM LEVEL 1.7 MG/DL (1.8-2.4); NON-HDL-C 158 MG/DL; POTASSIUM SERUM 3.1 MEQ/L (3.5-5.1); SODIUM LEVEL 140 MEQ/L (136-145); TOTAL PROTEIN 7.2 GM/DL (6.4-8.2); TRIGLYCERIDES LEVEL 268 MG/DL (<150)
== END ==
LOC: M PLALAB 09:03
PROVIDERS: ATTEND Internal Medicine
DX: I10 Essential (primary) hypertension (principal); E78.00 Pure hypercholesterolemia, unspecified

== ENCOUNTER → 2021-01-18 | Outpatient (CLI) | payer MEDICARE, OTHER | LOC: M LABSMTC 13:11 | PROVIDERS: ATTEND Anesthesiology | DX: Z20.828 Contact with and (suspected) exposure to other viral communicable diseases (principal); Z11.59 Encounter for screening for other viral diseases ==

== ENCOUNTER 2021-01-21 07:54 | Day surgery (SDC) | payer MEDICARE, OTHER ==
[~2021-01-21] VITALS: Ht 172.7 cm; Wt 90.9 kg
[~2021-01-21 07:54] MED LIST changes: +ALBUTEROL SULFATE 2.5 MG/0.5 ML INH NEB SOLN INH ONE; +LIDOCAINE 4% INJ 5ML AMP INH ONE; +LR 1,000 ML IV ONE
[2021-01-21] MEDS ORDERED: ROCURONIUM BROMIDE 50 MG/5 ML VIAL As Ordered ONE (08:20)
[2021-01-21] MEDS ORDERED: propofoL 200 MG/20 ML VIAL As Ordered ONE (08:20)
[2021-01-21] MEDS ORDERED: fentaNYL 100 MCG/2 ML INJECTION (J3010) As Ordered ONE (08:20)
[2021-01-21] MEDS ORDERED: LIDOCAINE 2% 100MG/5ML SDV (FOR ANES.) As Ordered ONE (08:20)
[2021-01-21] MEDS ORDERED: dexameTHASONE 4 MG/ML 1ML VIAL (J1100 PER 1MG) As Ordered ONE (08:20)
[2021-01-21] MEDS ORDERED: SUGAMMADEX SODIUM 500 MG/5 ML VIAL (BRIDION) As Ordered ONE (08:20)
[2021-01-21] MEDS ORDERED: ONDANSETRON 4MG/2ML VIAL As Ordered ONE (08:20)
[2021-01-21] MEDS ORDERED: MIDAZOLAM INJ 2MG/2ML VIAL (J2250 PER 1MG) As Ordered ONE (08:21)
[2021-01-21] MEDS ORDERED: EPINEPHrine 1MG/10ML SYRINGE 1.5IN As Ordered ONE (09:00)
[2021-01-21] MEDS ORDERED: CETACAINE SPRAY 5GM As Ordered ONE (09:01)
[2021-01-21] MEDS ORDERED: THROMBIN SOLN 5,000 UNITS VIAL As Ordered ONE (09:01)
--- NOTE | 2021-01-21 10:39 | ROOR ---
Patient Name: Amy Wheatley Procedure Date: 01/21/2021 8:54 AM Date of : 1955 Admit Type: Outpatient Age: 65 Room: Main OR Note Status: Finalized Attending MD: Modesta Irby MD Procedure: Bronchoscopy Indications: Left upper lobe nodule Providers: Modesta Irby MD (Doctor), Maninder Max DO (1st Assisting Doctor) Referring MD: None Requesting Physician: Medicines: Lidocaine 4% via nebulizer with Albuterol 2.5 mg, General Anesthesia, Cetacaine topical, Epinephrine 1 mg/10 mL topical 1 mL Complications: No immediate complications. Estimated blood loss: Minimal Procedure: Pre-Anesthesia Assessment: - Prior to the procedure, a History and Physical was performed, and patient medications and allergies were reviewed. The patient's tolerance of previous anesthesia was also reviewed. The risks and benefits of the procedure and the sedation options and risks were discussed with the patient. All questions were answered, and informed consent was obtained. Prior Anticoagulants: The patient has taken no previous anticoagulant or antiplatelet agents. ASA Grade Assessment: II - A patient with mild systemic disease. After reviewing the risks and benefits, the patient was deemed in satisfactory condition to undergo the procedure. - Patient identification and proposed procedure were verified prior to the procedure by the physician, the nurse, the anesthesiologist, the prenatal nurse and the donor support technician. The procedure was verified in the procedure room. The Bronchoscope was introduced through the mouth, via the endotracheal tube (the patient was intubated for the procedure) and advanced to the tracheobronchial tree of both lungs. The procedure was accomplished without difficulty. The patient tolerated the procedure well. Findings: The trachea is of normal caliber. The terry is sharp. The entire tracheobronchial tree was examined to at least the first subsegmental level. Bronchial mucosa and anatomy are normal; there was some mucosal webbing and nodular cartilage throughout. There are no endobronchial lesions and scant secretions noted. In the left upper lobe apico-posterior segment there was some narrowing with edematous mucosa but no clearly visualized endobronchial lesion. [employer] Robotic electromagnetic navigation bronchoscopy was performed. The CT scan was used for planning purposes. A virtual bronchoscopic image was generated using the planning software. The target in the apical-posterior segment of the left upper lobe was marked. A nodule 2 cm in size was found and a pathway was created. After a complete airway exam, the navigation phase was then begun to locate the target lesion(s). Positioning centrally (in relation to the lesion) was confirmed using the Olympus radial probe US catheter. Transbronchial needle aspirations of a nodule were performed in the apical-posterior segment of the left upper lobe using a fine (20 gauge) needle and sent for routine cytology. The procedure was guided by fluoroscopy. Transbronchial needle aspiration technique was selected because the sampling site was not visible endoscopically. Transbronchial biopsies of a nodule were performed in the apical-posterior segment of the left upper lobe using forceps and sent for histopathology examination. The procedure was guided by fluoroscopy. Transbronchial biopsy technique was selected because the sampling site was not visible endoscopically. Fiducial marker placement was performed. Once the target lesion was identified, two markers were deployed around the proximal part of lesion 2 mm apart in the apical-posterior segment of the left upper lobe. Impression: - Left upper lobe nodule - Electromagnetic navigation bronchoscopy was performed. - A transbronchial needle aspiration was performed. - Transbronchial lung biopsies were performed. - Fiducial markers were deployed. Recommendation: - Await test results. Procedure Code(s): --- Professional --- 48199, Bronchoscopy, rigid or flexible, including fluoroscopic guidance, when performed; with placement of fiducial markers, single or multiple 61126, Bronchoscopy, rigid or flexible, including fluoroscopic guidance, when performed; with transbronchial needle aspiration biopsy(s), trachea, main stem and/or lobar bronchus(i) 03101, Bronchoscopy, rigid or flexible, including fluoroscopic guidance, when performed; with transbronchial lung biopsy(s), single lobe 59592, Bronchoscopy, rigid or flexible, including fluoroscopic guidance, when performed; with computer-assisted, image-guided navigation (List separately in addition to code for primary procedure[s]) 31659, Bronchoscopy, rigid or flexible, including fluoroscopic guidance, when performed; with transendoscopic endobronchial ultrasound (EBUS) during bronchoscopic diagnostic or therapeutic intervention(s) for peripheral lesion(s) (List separately in addition to code for primary procedure[s]) CPT copyright 2019 [employer]. All rights reserved. The codes documented in this report are preliminary and upon supervisor remelt review may be revised to meet current compliance requirements. Modesta Irby MD 01/21/2021 10:38:23 AM Maninder Max DO Number of Addenda: 0 Note Initiated On: 01/21/2021 8:54 AM
--- NOTE | 2021-01-21 10:45 | REP ---
INDICATION: post op in pacu 2239 COMPARISON: 02/07/2020 TECHNIQUE: Portable AP view of the chest FINDINGS: Mediastinum and cardiac silhouette are within normal limits and stable. Lung alba demonstrate changes presumed to be related to poor inspiratory effort. Two small clips are identified in the left mid/upper lung zone consistent with recent procedure. Subtle underlying opacity is noted and similar to findings on prior chest CT and x-ray. No effusion. No pneumothorax. Skeletal structures intact. IMPRESSION: Limited by poor inspiratory effort. Postsurgical changes. No acute consolidation, effusion, or pneumothorax. <Electronically signed by Antonio Molina > 01/21/21 104
[2021-01-21] MEDS ORDERED: ONDANSETRON 4MG/2ML VIAL IV PRN (11:00)
[2021-01-21] MEDS ORDERED: LR 1,000 ML IV SCH (11:00)
[2021-01-21] MEDS ORDERED: ALBUTEROL SULFATE 2.5 MG/0.5 ML INH NEB SOLN INH ONE (11:00)
[2021-01-21] MEDS ORDERED: oxyCODONE 5MG TAB PO PRN (11:00)
[2021-01-21] MEDS ORDERED: HYDROMORPHONE HCL 0.5 MG/ 0.5 ML SYRINGE (J1170 PER 1) IV PRN (11:00)
[2021-01-21] MEDS ORDERED: fentaNYL 100 MCG/2 ML INJECTION (J3010) IV PRN (11:00)
[2021-01-21 11:25] VITALS: BP 110/67
== END 2021-01-21 11:55 | disposition home or self-care (01) ==
LOC: M SDC 07:54
PROVIDERS: ATTEND Internal Medicine Pulmonary Disease
DX: C7A.090 Malignant carcinoid tumor of the bronchus and lung (principal); I10 Essential (primary) hypertension; E78.5 Hyperlipidemia, unspecified; K21.9 Gastro-esophageal reflux disease without esophagitis; Z79.899 Other long term (current) drug therapy; F32.9 Major depressive disorder, single episode, unspecified; L40.9 Psoriasis, unspecified
CPT/HCPCS: 31626; 31627; 31628; 31629; 31654; 71045; 76000; 88173; 88305; 88341; 88342; J1100; J2250; J2405; J3010; S2900

== ENCOUNTER → 2021-01-22 | Outpatient (REF) | payer MEDICARE, OTHER ==
[~2021-01-22] MED LIST changes: -ALBUTEROL SULFATE 2.5 MG/0.5 ML INH NEB SOLN INH ONE; -LIDOCAINE 4% INJ 5ML AMP INH ONE; -LR 1,000 ML IV ONE
== END ==
LOC: M SFHCWAGY 13:42
PROVIDERS: ATTEND Nurse Practitioner Women's Health
DX: Z12.4 Encounter for screening for malignant neoplasm of cervix (principal)
CPT/HCPCS: 87624; G0101; G0123; G0463

== ENCOUNTER → 2021-02-26 | Outpatient (CLI) | payer MEDICARE, OTHER ==
--- NOTE | 2021-02-26 10:23 | REPMRS ---
Patient History The patient states she had a clinical breast exam in January 2021. Patient is postmenopausal, has history of other cancer at age 66, and is nulliparous. No known family history of cancer. Took hormonal contraceptives for 10 years. Moderna vaccine 10/25/20 left arm. 11/22/20 left arm. Patient states no breast complaints today. Patient has signed MRS History Sheet. Digital Woman Screen Mammo: February 26, 2021 - Exam #: [id number] Bilateral CC and MLO view(s) were taken. Technologist: RT Hemant Prior study comparison: April 16, 2017, digital woman screen mammo performed at [facility]. March 15, 2015, digital woman screen mammo performed at [facility]. FINDINGS: The breast tissue is heterogeneously dense. This may lower the sensitivity of mammography. Screening. Digital screening (2D) mammography was performed bilaterally in the CC and MLO projections. Additionally, breast tomosynthesis (3D mammography) was performed bilaterally in the CC and MLO projections. Todays exam was compared to the prior exam/exams.There are no prior DBT images for comparison. By history, the patient has no complaints of a palpable breast abnormality or other significant breast complaints. The breasts are unchanged in size and shape.Once again, dense heterogenous fibroglandular elements are seen bilaterally in a stable appearing pattern but to such a degree that the sensitivity of the mammogram in detecting cancer is decreased.. There are no suzette-soft tissue densities or spiculated masses. There is no internal architectural distortion. There are no suspicious suzette-calcific clusters. Skin thickening or nipple retraction is not present. IMPRESSION: BI-RADS Category 2- Benign Findings. There is no evidence of malignant alteration of the breasts. Followup examination recommended in one year. The Volpara volumetric breast density category is C, the breasts are heterogenously dense which may obscure small masses. This mammogram was read with the assistance of trgt.us,an FDA approved computer aided detection system for mammography. The lifetime Tyrer-Cuzick score is 7.7 % Due to the density of the breasts or Tyrer Cuzick score of 20% or greater, MRI/whole breast screening ultrasound is warranted. Negative x-ray reports should not delay surgical consultation if a dominant or clinically suspicious mass is present. Not all breast cancers can be identified by mammography. Therefore, we recommend that you continue to perform regular breast self-examination and physical examination and then promptly contact your physician of any concerns or changes. Adenosis and dense breasts may obscure an underlying neoplasm. Assessment: BI-RADS/ACR category 2 mammogram. Benign Findings. Recommendation Routine screening mammogram of both breasts in 1 year. Electronically Signed By: Danny Levi DO 02/26/21 102
== END ==
LOC: M WHC 09:23
PROVIDERS: ATTEND Nurse Practitioner Women's Health
DX: Z12.31 Encounter for screening mammogram for malignant neoplasm of breast (principal); Z78.0 Asymptomatic menopausal state

== ENCOUNTER → 2021-07-22 | Outpatient (CLI) | payer MEDICARE, OTHER ==
[~2021-07-22] MED LIST changes: +QUET1TAB17 PO; -QUET25TA3 PO
[2021-07-22 11:15] LABS: ALBUMIN 3.8 GM/DL (3.2-5.2); ALT/SGPT 36 U/L (12-78); BILIRUBIN,TOTAL 0.9 MG/DL (0.2-1.0); BLOOD UREA NITROGEN 19 MG/DL (7-18); CARBON DIOXIDE LEVEL 30 MEQ/L (21-32); CHLORIDE LEVEL 104 MEQ/L (98-107); CHOLESTEROL LEVEL 208 MG/DL (<200); CHOLESTEROL RISK RATIO 3.058 (<5); CREATININE FOR GFR 0.89 MG/DL (0.55-1.30); GLOMERULAR FILTRATION RATE > 60.0 (>45); GLUCOSE, FASTING 93 MG/DL (70-100); HDL CHOLESTEROL 68 MG/DL (>40); LDL CHOLESTEROL 103 MG/DL (<100); MAGNESIUM LEVEL 1.8 MG/DL (1.8-2.4); NON-HDL-C 140 MG/DL; POTASSIUM SERUM 4.1 MEQ/L (3.5-5.1); SODIUM LEVEL 141 MEQ/L (136-145); TOTAL PROTEIN 7.2 GM/DL (6.4-8.2); TRIGLYCERIDES LEVEL 184 MG/DL (<150)
== END ==
LOC: M PLALAB 09:03
PROVIDERS: ATTEND Internal Medicine
DX: E78.00 Pure hypercholesterolemia, unspecified (principal); I10 Essential (primary) hypertension; Z11.59 Encounter for screening for other viral diseases
CPT/HCPCS: 36415; 80053; 80061; 83735; G0472

== ENCOUNTER → 2021-12-18 | Outpatient (CLI) | payer MEDICARE, OTHER ==
[~2021-12-18] MED LIST changes: +POTA-151 PO; -POTA20TA6 PO
[2021-12-18 14:07] LABS: BLOOD UREA NITROGEN 16 MG/DL (7-18); CREATININE FOR GFR 0.83 MG/DL (0.55-1.30); GLOMERULAR FILTRATION RATE > 60.0 (>45)
== END ==
LOC: M PLALAB 10:36
PROVIDERS: ATTEND Internal Medicine Pulmonary Disease
DX: C7A.090 Malignant carcinoid tumor of the bronchus and lung (principal)

== ENCOUNTER → 2021-12-30 | Outpatient (CLI) | payer MEDICARE, OTHER ==
[~2021-12-30] MED LIST changes: +ISOVUE-370 76% 100ML VIAL ONE
== END ==
LOC: M PLAIMG 08:10
PROVIDERS: ATTEND Internal Medicine Pulmonary Disease
DX: C7A.090 Malignant carcinoid tumor of the bronchus and lung (principal)
CPT/HCPCS: 71260; Q9967

== ENCOUNTER → 2022-01-21 | Outpatient (CLI) | payer MEDICARE, OTHER ==
[~2022-01-21] MED LIST changes: -ISOVUE-370 76% 100ML VIAL ONE
[2022-01-21 11:21] LABS: BASO # 0.1 10^3/uL (0.0-0.2); BASO % 1.3 % (0.0-1.0); EOS # 0.4 10^3/uL (0.0-0.5); EOS % 7.3 % (0.0-3.0); HEMATOCRIT 39.2 % (36.0-47.0); LYMPH # 1.8 10^3/uL (1.5-5.0); MEAN CORPUSCULAR HEMOGLOBIN 29.3 pg (27.0-33.0); MEAN CORPUSCULAR HGB CONC 33.2 g/dl (32.0-36.5); MEAN CORPUSCULAR VOLUME 88.3 fl (80.0-96.0); MONO # 0.5 10^3/uL (0.0-0.8); MONO % 8.8 % (2.0-8.0); NEUTROPHILS # 2.6 10^3/uL (1.5-8.5); NEUTROPHILS % 48.2 % (36.0-66.0); PLATELET COUNT, AUTOMATED 249 10^3/uL (150-450); RED BLOOD COUNT 4.44 10^6/uL (4.00-5.40); WHITE BLOOD COUNT 5.3 10^3/uL (4.0-10.0)
[2022-01-21 11:56] LABS: ALBUMIN 3.7 GM/DL (3.2-5.2); BILIRUBIN,TOTAL 0.9 MG/DL (0.2-1.0); CALCIUM LEVEL 9.1 MG/DL (8.8-10.2); CHOLESTEROL RISK RATIO 2.957 (<5); CREATININE FOR GFR 1.01 MG/DL (0.55-1.30); GLOMERULAR FILTRATION RATE 58.6 (>45); MAGNESIUM LEVEL 1.9 MG/DL (1.8-2.4); TOTAL PROTEIN 7.4 GM/DL (6.4-8.2)
== END ==
LOC: M PLALAB 08:14
PROVIDERS: ATTEND Internal Medicine
DX: E78.00 Pure hypercholesterolemia, unspecified (principal); Z79.899 Other long term (current) drug therapy; I10 Essential (primary) hypertension

== ENCOUNTER → 2022-04-03 | Outpatient (CLI) | payer MEDICARE, OTHER | LOC: M RAD 09:03 | PROVIDERS: ATTEND Internal Medicine Pulmonary Disease | DX: R91.8 Other nonspecific abnormal finding of lung field (principal) ==

== ENCOUNTER → 2022-04-10 | Outpatient (CLI) | payer MEDICARE, OTHER | LOC: M WUC 12:05 | PROVIDERS: ATTEND Physician Assistant | DX: M79.671 Pain in right foot (principal); S93.402A Sprain of unspecified ligament of left ankle, initial encounter; X58.XXXA Exposure to other specified factors, initial encounter; Y92.9 Unspecified place or not applicable ==

== ENCOUNTER → 2022-12-29 | Outpatient (CLI) | payer MEDICARE, OTHER | LOC: M WHC 10:34 | PROVIDERS: ATTEND Internal Medicine Hematology | DX: Z12.31 Encounter for screening mammogram for malignant neoplasm of breast (principal); Z13.820 Encounter for screening for osteoporosis ==

== ENCOUNTER → 2023-01-08 | Outpatient (CLI) | payer MEDICARE, OTHER | LOC: M PLAIMG 08:27 | PROVIDERS: ATTEND Internal Medicine Pulmonary Disease | DX: R91.8 Other nonspecific abnormal finding of lung field (principal) ==

== ENCOUNTER → 2023-01-28 | Outpatient (CLI) | payer MEDICARE, OTHER ==
[2023-01-28 16:00] LABS: C REACTIVE PROTEIN QUANTITATIV < 0.40 MG/DL (<1.0)
[2023-01-28 16:03] LABS: ALBUMIN 3.9 G/DL (3.2-5.2); ALKALINE PHOSPHATASE 64 U/L (46-116); ALT/SGPT 32 U/L (7.0-40); AST/SGOT 19 U/L (<34); BILIRUBIN,TOTAL 0.8 MG/DL (0.3-1.2); BLOOD UREA NITROGEN 13 MG/DL (9-23); CARBON DIOXIDE LEVEL 29 MMOL/L (20-31); CHLORIDE LEVEL 105 MMOL/L (98-107); CHOLESTEROL LEVEL 193 MG/DL (<200); CHOLESTEROL RISK RATIO 2.82 (<5); CREATININE FOR GFR 0.93 MG/DL (0.55-1.30); FREE T4 1.12 NG/DL (0.89-1.76); GLOMERULAR FILTRATION RATE > 60.0 (>45); GLUCOSE, FASTING 97 MG/DL (74-106); HDL CHOLESTEROL 68.3 MG/DL (>40); LDL CHOLESTEROL 87.7 MG/DL (<100); NON-HDL-C 124.7 MG/DL; POTASSIUM SERUM 4.1 MMOL/L (3.5-5.1); SODIUM LEVEL 139 MMOL/L (136-145); THYROID STIMULATING HORMONE 2.895 uIU/ML (0.55-4.78); TOTAL PROTEIN 6.9 G/DL (5.7-8.2); TRIGLYCERIDES LEVEL 185 MG/DL (<150); VITAMIN B12 LEVEL 208 PG/ML (211-911)
[2023-01-28 16:04] LABS: TOTAL 25(OH) VITAMIN D 22.7 NG/ML (20.0-100.0)
[2023-01-28 16:11] LABS: HEMATOCRIT 37.5 % (36.0-47.0); HEMOGLOBIN 12.7 g/dl (12.0-15.5); MEAN CORPUSCULAR HEMOGLOBIN 29.5 pg (27.0-33.0); MEAN CORPUSCULAR HGB CONC 33.9 g/dl (32.0-36.5); PLATELET COUNT, AUTOMATED 248 10^3/uL (150-450); RED BLOOD COUNT 4.31 10^6/uL (4.00-5.40)
[2023-01-28 16:17] LABS: HEMOGLOBIN A1c 5.3 % (4.0-6.0)
[2023-01-28 16:21] LABS: CREATININE, URINE 115.4 MG/DL; MAU/CREAT RATIO 200.1 MCG/MG (0.0-30.0)
== END ==
LOC: M PLALAB 12:08
PROVIDERS: ATTEND Internal Medicine Hematology
DX: E78.00 Pure hypercholesterolemia, unspecified (principal)

== ENCOUNTER → 2023-02-19 | Outpatient (CLI) | payer MEDICARE, OTHER | LOC: M RAD 09:52 | PROVIDERS: ATTEND Internal Medicine Hematology | DX: M79.89 Other specified soft tissue disorders (principal) ==

== ENCOUNTER → 2023-07-07 | Outpatient (REF) | payer MEDICARE, OTHER | LOC: M SFHCWAGY 16:58 | PROVIDERS: ATTEND Nurse Practitioner Family | DX: L29.2 Pruritus vulvae (principal) ==

== ENCOUNTER → 2023-07-28 | Outpatient (CLI) | payer MEDICARE, OTHER | LOC: M PLAIMG 12:48 | PROVIDERS: ATTEND Internal Medicine Pulmonary Disease | DX: R91.8 Other nonspecific abnormal finding of lung field (principal) ==

== ENCOUNTER → 2023-08-04 | Outpatient (REF) | payer MEDICARE, OTHER | LOC: M SFHCWAGY 13:09 | PROVIDERS: ATTEND Nurse Practitioner Family | DX: L90.0 Lichen sclerosus et atrophicus (principal); L85.9 Epidermal thickening, unspecified; N90.89 Other specified noninflammatory disorders of vulva and perineum ==

== ENCOUNTER → 2024-01-04 | Outpatient (CLI) | payer MEDICARE, OTHER ==
[~2024-01-04] MED LIST changes: +ROSU5TAB40 PO; -ROSU5TAB5 PO
== END ==
LOC: M WHC 09:24
PROVIDERS: ATTEND Internal Medicine Hematology
DX: Z12.31 Encounter for screening mammogram for malignant neoplasm of breast (principal)

== ENCOUNTER → 2024-01-26 | Outpatient (CLI) | payer MEDICARE, OTHER ==
[2024-01-26 13:16] LABS: BASO # 0.1 10^3/uL (0.0-0.2); BASO % 0.8 % (0.0-1.0); EOS # 0.3 10^3/uL (0.0-0.5); EOS % 4.3 % (0.0-3.0); HEMATOCRIT 39.6 % (36.0-47.0); HEMOGLOBIN 13.4 g/dl (12.0-15.5); LYMPH % 32.2 % (24.0-44.0); MEAN CORPUSCULAR HEMOGLOBIN 30.1 pg (27.0-33.0); MEAN CORPUSCULAR HGB CONC 33.8 g/dl (32.0-36.5); MONO # 0.6 10^3/uL (0.0-0.8); MONO % 9.5 % (2.0-8.0); NEUTROPHILS # 3.2 10^3/uL (1.5-8.5); PLATELET COUNT, AUTOMATED 242 10^3/uL (150-450); RED BLOOD COUNT 4.45 10^6/uL (4.00-5.40); WHITE BLOOD COUNT 6.1 10^3/uL (4.0-10.0)
[2024-01-26 13:34] LABS: C REACTIVE PROTEIN QUANTITATIV < 0.40 MG/DL (<1.0)
[2024-01-26 13:36] LABS: ALBUMIN 3.8 G/DL (3.2-5.2); ALKALINE PHOSPHATASE 60 U/L (46-116); ALT/SGPT 25 U/L (7.0-40); AST/SGOT 13 U/L (<34); BILIRUBIN,TOTAL 0.9 MG/DL (0.3-1.2); BLOOD UREA NITROGEN 14 MG/DL (9-23); CALCIUM LEVEL 9.6 MG/DL (8.3-10.6); CARBON DIOXIDE LEVEL 31 MMOL/L (20-31); CHLORIDE LEVEL 105 MMOL/L (98-107); CHOLESTEROL LEVEL 196 MG/DL (<200); CHOLESTEROL RISK RATIO 3.02 (<5); CREATININE FOR GFR 0.91 MG/DL (0.55-1.30); GLOMERULAR FILTRATION RATE > 60.0 (>45); GLUCOSE, FASTING 104 MG/DL (74-106); HDL CHOLESTEROL 64.8 MG/DL (>40); LDL CHOLESTEROL 81.6 MG/DL (<100); NON-HDL-C 131.2 MG/DL; POTASSIUM SERUM 4.2 MMOL/L (3.5-5.1); SODIUM LEVEL 142 MMOL/L (136-145); TOTAL PROTEIN 5.5 G/DL (5.7-8.2); TRIGLYCERIDES LEVEL 248 MG/DL (<150)
[2024-01-26 13:40] LABS: HEMOGLOBIN A1c 5.4 % (4.0-6.0); VITAMIN B12 LEVEL 953 PG/ML (211-911)
[2024-01-26 13:42] LABS: THYROID STIMULATING HORMONE 3.398 uIU/ML (0.55-4.78)
[2024-01-26 13:43] LABS: CREATININE, URINE 89.4 MG/DL
[2024-01-26 13:45] LABS: FREE T4 1.21 NG/DL (0.89-1.76)
== END ==
LOC: M PLALAB 10:59
PROVIDERS: ATTEND Internal Medicine Hematology
DX: E78.00 Pure hypercholesterolemia, unspecified (principal); Z79.899 Other long term (current) drug therapy

== ENCOUNTER → 2024-02-01 | Outpatient (CLI) | payer MEDICARE, OTHER | LOC: M PLAIMG 11:32 | PROVIDERS: ATTEND Internal Medicine Hematology | DX: R07.81 Pleurodynia (principal) ==

== ENCOUNTER → 2024-02-25 | Outpatient (CLI) | payer MEDICARE, OTHER | LOC: M SOG 07:54 | PROVIDERS: ATTEND Physician Assistant | DX: M79.604 Pain in right leg (principal) ==

== ENCOUNTER → 2024-04-01 | Outpatient (CLI) | payer MEDICARE, OTHER | LOC: M PLARAD 07:55 | PROVIDERS: ATTEND Physician Assistant | DX: R22.41 Localized swelling, mass and lump, right lower limb (principal) ==

== ENCOUNTER → 2024-08-15 | Outpatient (CLI) | payer MEDICARE, OTHER ==
[~2024-08-15] MED LIST changes: -ROSU5TAB40 PO; +ROSU5TAB49 PO
== END ==
LOC: M RAD 16:47
PROVIDERS: ATTEND Internal Medicine Pulmonary Disease
DX: C7A.090 Malignant carcinoid tumor of the bronchus and lung (principal)

== ENCOUNTER → 2024-12-23 | Outpatient (CLI) | payer MEDICARE, OTHER ==
[2024-12-23 11:41] LABS: BASO # 0.1 10^3/uL (0.0-0.2); BASO % 0.9 % (0.0-1.0); EOS # 0.3 10^3/uL (0.0-0.5); EOS % 4.5 % (0.0-3.0); HEMATOCRIT 40.3 % (36.0-47.0); HEMOGLOBIN 13.5 g/dl (12.0-15.5); LYMPH # 1.7 10^3/uL (1.5-5.0); LYMPH % 28.6 % (24.0-44.0); MEAN CORPUSCULAR HEMOGLOBIN 29.7 pg (27.0-33.0); MEAN CORPUSCULAR HGB CONC 33.5 g/dl (32.0-36.5); MEAN CORPUSCULAR VOLUME 88.6 fl (80.0-96.0); MONO # 0.6 10^3/uL (0.0-0.8); MONO % 9.8 % (2.0-8.0); NEUTROPHILS # 3.3 10^3/uL (1.5-8.5); NEUTROPHILS % 55.9 % (36.0-66.0); PLATELET COUNT, AUTOMATED 265 10^3/uL (150-450); RED BLOOD COUNT 4.55 10^6/uL (4.00-5.40); WHITE BLOOD COUNT 5.8 10^3/uL (4.0-10.0)
[2024-12-23 12:09] LABS: CALCIUM LEVEL 9.1 MG/DL (8.3-10.6); CREATININE FOR GFR 0.9 MG/DL (0.55-1.30); GLOMERULAR FILTRATION RATE 69.6 (>45); POTASSIUM SERUM 3.9 MMOL/L (3.5-5.1); TOTAL PROTEIN 7.3 G/DL (5.7-8.2)
== END ==
LOC: M LAB 10:13 → M PLALAB 10:13
PROVIDERS: ATTEND Physician Assistant
DX: R10.9 Unspecified abdominal pain (principal); E78.00 Pure hypercholesterolemia, unspecified

== ENCOUNTER → 2024-12-23 | Outpatient (CLI) | payer MEDICARE, OTHER ==
[~2024-12-23] MED LIST changes: +ISOVUE-370 76% 100ML VIAL ONE
== END ==
LOC: M PLAIMG 11:52
DX: K57.30 Diverticulosis of large intestine without perforation or abscess without bleeding (principal); R10.9 Unspecified abdominal pain

== ENCOUNTER → 2025-03-07 | Outpatient (CLI) | payer MEDICARE, OTHER ==
[~2025-03-07] MED LIST changes: +B-122500 PO; -ISOVUE-370 76% 100ML VIAL ONE; -PRAV40TA2 PO; +PRAV40TA85 PO; +ROSU10TA61 PO
== END ==
LOC: M RAD 08:45
DX: R74.8 Abnormal levels of other serum enzymes (principal)

== ENCOUNTER 2025-03-08 10:14 | Day surgery (SDC) | payer MEDICARE, OTHER ==
[~2025-03-08] VITALS: Ht 172.7 cm; Wt 95.7 kg
[2025-03-08] MEDS ORDERED: LIDOCAINE 2% 100 MG/5 ML SDV (FOR ANES.) As Ordered ONE (12:24)
[2025-03-08 12:58] VITALS: TEMP 99.1
[2025-03-08 13:20] VITALS: BP 115/58; O2SAT 98
== END 2025-03-08 13:45 | disposition home or self-care (01) ==
LOC: M OPP 10:14
PROVIDERS: ATTEND Internal Medicine Gastroenterology
DX: D12.6 Benign neoplasm of colon, unspecified (principal); K57.30 Diverticulosis of large intestine without perforation or abscess without bleeding; K64.0 First degree hemorrhoids; R10.12 Left upper quadrant pain; R19.4 Change in bowel habit; K29.60 Other gastritis without bleeding; R12 Heartburn; R93.3 Abnormal findings on diagnostic imaging of other parts of digestive tract; Z79.899 Other long term (current) drug therapy

== ENCOUNTER → 2025-07-27 | Outpatient (CLI) | payer MEDICARE, OTHER ==
[~2025-07-27] MED LIST changes: -HEPA500011 SC; +HEPA50002 SC; -ROSU10TA61 PO; +ROSU10TA90 PO
[2025-07-27 15:11] LABS: CHOLESTEROL LEVEL 204.0 MG/DL (<200); CHOLESTEROL RISK RATIO 3.44 (<5); LDL CHOLESTEROL 110.4 MG/DL (<100); NON-HDL-C 144.8 MG/DL; TRIGLYCERIDES LEVEL 172.0 MG/DL (<150)
[2025-07-27 15:12] LABS: BASO # 0.1 10^3/uL (0.0-0.2); BASO % 0.8 % (0.0-1.0); EOS # 0.4 10^3/uL (0.0-0.5); EOS % 5.4 % (0.0-3.0); LYMPH # 1.9 10^3/uL (1.5-5.0); LYMPH % 28.2 % (24.0-44.0); MONO # 0.6 10^3/uL (0.0-0.8); MONO % 9.0 % (2.0-8.0); NEUTROPHILS # 3.7 10^3/uL (1.5-8.5); NEUTROPHILS % 56.3 % (36.0-66.0); PLATELET COUNT, AUTOMATED 298 10^3/uL (150-450)
[2025-07-27 15:14] LABS: FREE T4 1.34 NG/DL (0.89-1.76)
[2025-07-27 15:38] LABS: ESTIMATED AVERAGE GLUCOSE 114.0 MG/DL (60-110)
== END ==
LOC: M PLALAB 10:48
DX: I10 Essential (primary) hypertension (principal); Z13.1 Encounter for screening for diabetes mellitus; R10.12 Left upper quadrant pain; E78.00 Pure hypercholesterolemia, unspecified

== ENCOUNTER → 2025-07-27 | Outpatient (CLI) | payer MEDICARE, OTHER | LOC: M LAB 11:21 | PROVIDERS: ATTEND Physician Assistant | DX: D48.9 Neoplasm of uncertain behavior, unspecified (principal) ==

== ENCOUNTER → 2025-08-16 | Outpatient (CLI) | payer MEDICARE, OTHER | LOC: M RAD 08:48 | PROVIDERS: ATTEND Internal Medicine Pulmonary Disease | DX: C7A.090 Malignant carcinoid tumor of the bronchus and lung (principal) ==